=== PATIENT | female | born 1965 | race Native Hawaiian/Other Pacific Islander ===

== ENCOUNTER → 2018-09-04 | Outpatient (CLI) | payer BC ==
--- NOTE | 2018-09-05 13:26 | MM ---
Reason for exam: screening (asymptomatic). Last mammogram was performed 5 years and 3 months ago. History: Cancelled Right US Aspiration of both breasts, August 13, 2005. Benign excisional biopsy of the right breast, July 27, 2002. Benign cyst aspiration of the right breast, 2002. Physical Findings: A clinical breast exam by your physician is recommended on an annual basis and results should be correlated with mammographic findings. MG Screening Mammo w CAD Bilateral CC and MLO view(s) were taken. Prior study comparison: June 08, 2013, bilateral digital screening mammo w/CAD. April 27, 2010, bilateral digital screening mammogram. The breast tissue is extremely dense which could obscure a lesion on mammography. Finding: There are typically benign calcifications in the upper inner quadrant of both breasts. There are indeterminate grouped calcifications in the right breast upper inner quadrant. ASSESSMENT: Incomplete: need additional imaging evaluation, BI-RAD 0 RECOMMENDATION: Special view mammogram of the right breast. [facility] will attempt to contact patient to return for supplemental views.
== END | disposition home or self-care (01) ==
LOC: RADMAMWWP 15:46
PROVIDERS: ATTEND Family Medicine
DX: Z12.31 Encounter for screening mammogram for malignant neoplasm of breast (principal)
CPT/HCPCS: 77067

== ENCOUNTER → 2018-09-08 | Outpatient (CLI) | payer BC ==
--- NOTE | 2018-09-11 09:44 | MM ---
Reason for exam: additional evaluation requested from abnormal screening. Last mammogram was performed less than 1 month ago. History: Cancelled Right US Aspiration of both breasts, August 13, 2005. Benign excisional biopsy of the right breast, July 27, 2002. Benign cyst aspiration of the right breast, 2002. Physical Findings: Nurse did not find any significant physical abnormalities on exam. MG Work Up Mamm w CAD RT LM, CC with magnification, and LM with magnification view(s) were taken of the right breast. Prior study comparison: June 08, 2013, bilateral digital screening mammo w/CAD. Finding: There are intermediate concern, suspicious calcifications in the upper inner quadrant of the right breast. New finding since June 08, 2013. These results were verbally communicated with the patient and result sheet given to the patient on 09/08/18. ASSESSMENT: Suspicious, BI-RAD 4 RECOMMENDATION: Stereotactic core biopsy of the right breast. Called with mammographic findings and has scheduled an appointment for the patient for 09/21/18 at 9:[address] Arnold. PRELIMINARY REPORT CALLED AND FAXED TO DR. ARNOLD ON 09/11/18.
== END | disposition home or self-care (01) ==
LOC: RADMAMWWP 13:30
PROVIDERS: ATTEND Family Medicine
DX: R92.8 Other abnormal and inconclusive findings on diagnostic imaging of breast (principal)
CPT/HCPCS: 77065

== ENCOUNTER 2018-09-15 06:47 | Day surgery (SDC) | payer BC ==
[2018-09-13 15:17] VITALS: BMI 26.1
[~2018-09-15 06:47] MED LIST: LACTATED RINGERS 1,000 ML IV SCH
[2018-09-15 07:04] VITALS: RESP 16; TEMP 97.8
[2018-09-15] MEDS ORDERED: LIDOCAINE 1% 20 ML VIAL (10MG/ML) FOR IV START INTRADERMA ONE (07:11)
[2018-09-15] MEDS ORDERED: SCOPOLAMINE 1.5MG/72HR PATCH TRANSDERM ONE (07:24)
[2018-09-15] MEDS ORDERED: ONDANSETRON 4 MG/2 ML VIAL IVP ONE (07:24)
[2018-09-15] MEDS ORDERED: DEXAMETHASONE SOD PHOS (MDV) 100 MG/10 ML VIAL IVP ONE (07:24)
[2018-09-15] MEDS ORDERED: GLYCOPYRROLATE 0.2 MG/ML 2 ML VIAL ONE (08:22)
[2018-09-15] MEDS ORDERED: PROPOFOL 10 MG/ML 20 ML VIAL IV ONE (08:22)
[2018-09-15] MEDS ORDERED: LIDOCAINE 1% INJ 10MG/ML (20 ML MDV) ONE (08:22)
--- NOTE | 2018-09-15 08:50 | P.PCN ---
Date of Procedure: 09/15/18 Postoperative Diagnosis: BRIEF HISTORY: Patient is a 53-year-old pleasant white female,scheduled for an elective colonoscopy as a part of value should of intermittent rectal bleeding for the last 1 year duration. She also complains of occasional constipation. PROCEDURE PERFORMED: Colonoscopy. PREOPERATIVE DIAGNOSIS: intermittent rectal bleeding IV sedation per Anesthesia. PROCEDURE: After informed consent was obtained, the patient, was brought into the endoscopy unit. IV sedation was administered by Anesthesia under continuous monitoring. Digital rectal examination was normal. Initially the Olympus CF-160 flexible video colonoscope was then inserted in the rectum, gradually advanced into the cecum without any difficulty. Careful examination was performed as the scope was gradually being withdrawn. Ileocecal valve and the appendiceal orifice were visualized and appeared normal. Prep was excellent. Mucosa of the cecum, ascending colon, transverse colon, descending colon, sigmoid colon, and rectum appeared normal. Retroflexion was performed in the rectum and grade 2 internal hemorrhoids ere seen. The patient tolerated the procedure well. IMPRESSION: Normal-appearing colon from rectum to cecum with no evidence of colitis or colorectal neoplasia Grade 2 internal hemorrhoids. RECOMMENDATIONS: Findings of this examination were discussed with the patient as well as her family. She was advised to be a high-fiber diet and fiber supplements on a regular basis. She can have a repeat screening colonoscopy in 10 years.
[2018-09-15 09:09] VITALS: BP 135/78; PULSE 69
== END 2018-09-15 09:33 | disposition home or self-care (01) ==
LOC: ORWHC2ENDO 06:47
PROVIDERS: ATTEND Internal Medicine Gastroenterology
DX: K62.5 Hemorrhage of anus and rectum (principal); K59.00 Constipation, unspecified; K64.1 Second degree hemorrhoids; Z79.899 Other long term (current) drug therapy; Z88.5 Allergy status to narcotic agent; Z91.041 Radiographic dye allergy status; Z88.0 Allergy status to penicillin; Z91.048 Other nonmedicinal substance allergy status; I10 Essential (primary) hypertension
CPT/HCPCS: 45378; J2405; J2001; J1100; J2704

== ENCOUNTER → 2018-11-02 | Day surgery (SDC) | payer BC ==
[2018-11-02 07:26] VITALS: RESP 16; TEMP 98.5; BMI 26.6
[2018-11-02 09:33] VITALS: BP 146/78; PULSE 80
--- NOTE | 2018-11-02 10:54 | P.OP ---
Date of Procedure: 11/02/18 Preoperative Diagnosis: Mammographic abnormality right breast Postoperative Diagnosis: same Procedure(s) Performed: Right breast stereotactic core biopsy Anesthesia: local Surgeon: Priti Whelan Estimated Blood Loss (ml): 0 Pathology: other (breast tissue) Condition: stable Disposition: same day Indications for Procedure: Mammographic abnormality right breast Operative Findings: Microcalcifications noted in tissue specimen Description of Procedure: The patient is a 53-year-old white female with a radiographic abnormality of microcalcifications noted in the upper outer quadrant area of the right breast. It was recommended she undergo stereotactic core biopsy. The patient understands risks and benefits and wishes to proceed. Patient was taken to the stereotactic core room and positioned on the liver bed table. A finger buffs assembler film was obtained which revealed the area of calcification. Stereo pair was obtained and the area was targeted. The breast was prepped using Betadine. 20 mL of 1% lidocaine utilized to anesthetize the tissue. 10 mL of that was with epinephrine. Bleeding 9-gauge vacuum-assisted core rotating biopsy needle was driven to the correct coordinates. The procedure films were obtained which revealed an needle was in the correct location. The needle was then fired and postprocedure films were obtained again revealing the needle to be in the correct location. Multiple core biopsies were then obtained. Approximately 13 were obtained. Radiograph of the specimen revealed the area of concern had been removed. A secure marked top at marker was left in place. This was noted to be in the correct location. Specimen was sent for pathology. Patient will follow-up with Dr. Washburn next week.
--- NOTE | 2018-11-02 17:03 | MM ---
EXAMINATION TYPE: MG stereo VAD BX RT DATE OF EXAM: 11/02/2018 COMPARISON: 09/04/2018, 09/08/2018 mammograms CLINICAL HISTORY: Previous abnormal mammogram TECHNIQUE: Stereotactic guided core biopsy of right breast. FINDINGS: The procedure of stereotactic guided core biopsy was explained to the patient. Benefits, a lternatives, and risks were discussed. An informed consent was then obtained. The procedure and targeting was provided by surgery. Postprocedure mammogram was obtained and demonstrates the clip at the expected region of the biopsy s ite. Sample: Mammographic sample obtained demonstrates calcifications within the biopsy. IMPRESSION: 1. Successful stereotactic core biopsy right breast Recommendations: 1. Recommendations are pending pathology results.
== END ==
LOC: RADMAMWWP 07:00
PROVIDERS: ATTEND Surgery
DX: C50.211 Malignant neoplasm of upper-inner quadrant of right female breast (principal)
CPT/HCPCS: 19081; A4648; J2001; 88305; 88341; 88342

== ENCOUNTER → 2018-11-09 | Outpatient (CLI) | payer BC ==
[2018-11-09 08:58] VITALS: BP 153/89; PULSE 64; RESP 16; TEMP 98.4; BMI 26.5
--- NOTE | 2018-11-09 09:34 | P.GSHP ---
History of Present Illness H&P Date: 11/09/18 Chief Complaint: right breast cancer The patient is a 53-year-old Somali female who noted some nodularity in her right breast for several years. She has had a benign excisional biopsy of the right breast in July 2002. She's also had cyst aspirated from this breast in the past. The patient recently had a mammogram performed on 4118. This revealed an indeterminate group of calcifications in the right breast in the upper inner quadrant. A stereotactic core biopsy was recommended. The stereotactic core biopsy was positive for infiltrating ductal adenocarcinoma, grade 1 with a lobular growth pattern. It was felt that was multifocal with the largest biopsy tumor measuring 2.2 mm. The background breast parenchyma showed extensive ductal carcinoma in situ with focal comedo form necrosis. The lesion was ER/SD positive as well as HER-2/ajit positive. The patient does not note any areas of concern in the left breast. She has no nipple discharge or skin changes of concern. She has no history of any trauma or infection in the breast. Family history: 1. father: pancreas cancer 2. mother: lung cancer nonsmoker Hormonal history: Menarche:10 , first at 29, breast fed: no menopause: hysterectomy at 41 did not take ovaries, not for cancer BCP: none hormones: none Surgical history: 1. Hysterectomy 2. Tonsillectomy 3. Cholecystectomy 4. Breast cyst in the right Medical history: HTN Social history: Smoke: Negative Alcohol: Negative Drugs: Negative - Constitutional Constitutional: Denies chills, Denies fever - EENT Eyes: bilateral blurred vision Ears: deny: decreased hearing, tinnitus Ears, nose, mouth and throat: Reports headache - Breasts Breasts: bilateral: as per HPI - Cardiovascular Comment: Stress test scheduled for next week by cardiology Cardiovascular: Reports high blood pressure - Respiratory Respiratory: Denies cough, Denies 7 - Gastrointestinal Gastrointestinal: Denies abdominal pain, Denies diarrhea, Denies nausea, Denies vomiting - Genitourinary (Female) Genitourinary: Denies dysuria, Denies hematuria - Menstruation Menstruation: Reports post hysterectomy - Musculoskeletal Comment: arthritis Musculoskeletal: Denies myalgias - Integumentary Integumentary: Denies pruritus, Denies rash - Neurological Neurological: Denies numbness, Denies weakness - Psychiatric Psychiatric: Denies anxiety, Denies depression - Endocrine Endocrine: Denies fatigue, Denies weight change - Hematologic/Lymphatic Comment: none - Allergic/Immunologic Allergic/Immunologic: Reports as per HPI, Reports seasonal allergies Past Medical History Additional Past Surgical History / Comment(s): right breast benign excisional biopsy x2 Past Anesthesia/Blood Transfusion Reactions: Postoperative Nausea & Vomiting (PONV) Medications and Allergies Home Medications Medication Instructions Recorded Confirmed Type Losartan Potassium 100 mg PO HS 09/13/18 11/02/18 History Multivitamins, Thera [Multivitamin 1 tab PO DAILY 09/13/18 11/02/18 History (formulary)] amLODIPine [Norvasc] 5 mg PO HS 09/13/18 11/02/18 History Biotin 5 mg PO DAILY 10/23/18 11/02/18 History Cholecalciferol (Vitamin D3) 2,000 unit PO DAILY 10/23/18 11/02/18 History [Vitamin D3] Cranberry Fruit Extract [Cranberry] 200 mg PO DAILY 10/23/18 11/02/18 History Allergies Allergy/AdvReac Type Severity Reaction Status Date / Time Iodinated Contrast- Oral and Allergy Anaphylaxis Verified 11/02/18 07:19 IV Dye Penicillins Allergy Rash/Hives Verified 11/02/18 07:19 codeine AdvReac Nausea & Verified 11/02/18 07:19 Vomiting Surgical - Exam BMI 26.5 - General well developed, well nourished, no distress - Eyes normal ocular movement - ENT normal pinna, no hearing loss - Neck no masses, trachea midline - Respiratory normal expansion, normal respiratory effort, clear to auscultation - Cardiovascular Rhythm: regular Heart Sounds: normal: S1, S2 - Abdomen Abdomen: soft, non tender, no guarding, no rigid, no rebound - Integumentary normal turgor - Neurologic no disoriented, no combative - Musculoskeletal normal gait, normal posture - Psychiatric oriented to time, oriented to person, oriented to place, speech is normal, memory intact Breast examination: Right breast: Well-healed scar lateral aspect of the breast from prior biopsy, increased density of the tissue at this site, ecchymosis mild at the site of stereo biopsy no hematoma of concern, and no other dominant masses or nodules of concern Right axilla: No adenopathy of concern {: Multiple positional exam no dominant masses or nodules of concern Left axilla: No adenopathy of concern Results Pathology results reviewed Assessment and Plan Assessment: Impression: 1. Biopsy-proven right breast cancer 2. Abnormal mammogram right breast 3. Dense this in the lateral aspect of the right breast 4. Fibrocystic breast changes 5. Family history of cancer 6. Hypertension I had a discussion with the patient regarding her pathology. She is quite anxious and is contacting her at this time. I discussed the case also with Dr. Pace from medical oncology, his feeling is that if the lesion is less than 2 cm she is not a candidate at this time for preoperative chemotherapy. Plan: 1. The patient is wishes to discuss the case with her she is going to bring him back to have this discussion 2. Options of lumpectomy versus mastectomy were discussed with the patient. 3. Medical management of medical conditions CC: Dr. Arnold
== END ==
LOC: WWCWWP 08:44
PROVIDERS: ATTEND Surgery
DX: Z53.9 Procedure and treatment not carried out, unspecified reason (principal)

== ENCOUNTER 2018-11-14 10:23 | Inpatient (IN) | payer BC ==
[2018-11-13 08:45] VITALS: BMI 26.5
--- NOTE | 2018-11-14 06:59 | P.PN ---
Progress Note - Text Progress Note Date: 11/14/18 The patient has met with radiation oncology. After discussion with her in radiation oncology she has opted for a lumpectomy. The patient will undergo needle localization and lumpectomy. She was sentinel node injection sentinel node biopsy possible axillary node dissection. She understands the risks and benefits and wishes to proceed.
[~2018-11-14 10:23] MED LIST changes: +DEXAMETHASONE SOD PHOSPHATE 10 MG/ML 1 ML VIAL IV ONE; +HEPARIN SODIUM,PORCINE 5,000 UNIT/ML 1 ML VIAL SQ ONE; +MIDAZOLAM 2 MG/2 ML VIAL IV PRN; +ONDANSETRON 4 MG/2 ML VIAL IVP ONE; +Pre Op ABX Message 1 EACH MISC MISCELLANE ONE; +SCOPOLAMINE 1.5MG/72HR PATCH TRANSDERM ONE; +fentaNYL (PF) 50 MCG/ML 2 ML AMP IV PRN
[2018-11-14] MEDS ORDERED: LIDOCAINE 1% 20 ML VIAL (10MG/ML) FOR IV START INTRADERMA ONE (11:15)
[2018-11-14] MEDS ORDERED: ALPRAZolam 0.5 MG TAB PO ONE ×2 (11:16)
[2018-11-14] MEDS ORDERED: LIDOCAINE 1% INJ 10MG/ML (20 ML MDV) SQ ONE ×4 (11:49→17:22)
--- NOTE | 2018-11-14 12:51 | NM ---
EXAMINATION TYPE: NM sentinel node injection DATE OF EXAM: 11/14/2018 COMPARISON: 11/02/2018 HISTORY: Right breast cancer with request for sentinel lymph node injection TECHNIQUE AND FINDINGS: The procedure of sentinel lymph node injection was explained to the patient. The benefits, alternatives, and risks were discussed. An informed consent was then obtained. Overlying skin is cleaned with sterile alcohol. Following this, 501 uCi Tc99m Tilmanocept was inject ed in the upper outer aspect of the right nipple intradermally. The patient tolerated the procedure well without any immediate complication. The patient was kept in the radiology department for short stay after the procedure and then taken to surgery for surgical p rocedure what is presumed intraoperative gamma probe will be used for sentinel lymph node detection. IMPRESSION: Right breast radiotracer injection for sentinel node localization as above.
[2018-11-14] MEDS ORDERED: LIDOCAINE 1% INJ 10MG/ML (20 ML MDV) ONE (14:45)
[2018-11-14] MEDS ORDERED: PROPOFOL 10 MG/ML 20 ML VIAL IV ONE (14:45)
[2018-11-14] MEDS ORDERED: fentaNYL (PF) 50 MCG/ML 2 ML AMP ONE (14:45)
[2018-11-14] MEDS ORDERED: MIDAZOLAM 2 MG/2 ML VIAL ONE (14:45)
[2018-11-14] MEDS ORDERED: KETOROLAC 30 MG/ML 1 ML VIAL ONE (14:45)
[2018-11-14] MEDS ORDERED: SUCCINYLCHOLINE CHLORIDE 100 MG/5 ML SYR IV ONE (14:45)
[2018-11-14] MEDS ORDERED: HEPARIN SODIUM,PORCINE 5,000 UNIT/ML 1 ML VIAL SQ ONE (15:05)
[2018-11-14] MEDS ORDERED: LACTATED RINGERS 1,000 ML IV ONE (16:03)
--- NOTE | 2018-11-14 16:28 | MM ---
EXAMINATION TYPE: MG pre op needle loc RT, MG surgical specimen RT DATE OF EXAM: 11/14/2018 COMPARISON: 11/02/2018 CLINICAL HISTORY: Right breast needle localization for DCIS TECHNIQUE: Needle localization with wire placement and surgical excision of area of concern in the right breast. FINDINGS: The procedure of needle localization with wire placement and than surgical excision was explained to the patient. Benefits, alternatives, and risks were discussed. An informed consent was then obtained. Preprocedural timeout was performed. The shortest pathway for procedure was chosen. Shortest pathway was medial to lateral approach. The overlying skin was prepped and draped in usual sterile fashion. Lidocaine buffered with bicarbonate was used as anesthetic into the skin and subcutaneous tissue up to the level of area of concern. A 7 cm needle was used. It was placed via a medial collateral approach under mammographic guidance. Subsequent 90 degrees mammogram show the needle to be in satisfactory position relative to the targeted area. At this point, wire was placed and the needle was withdrawn. The wire was fixed to patient's skin. Images were marked for surgeon. The patient tolerated the procedure well without any immediate complication. The patient was kept in the radiology department for short stay after the procedure and then taken to surgery for surgical excision. Targeted biopsy marker and wire are identified in specimen mammogram. These are most cranial aspect of the edge of the sample. This was communicated with the surgeon however no additional superior tissue was left to resect. The patient was kept in hospital for short stay after the procedure and then discharged home in stable condition. IMPRESSION: Successful, uncomplicated needle localization with wire placement and surgical excision of the targeted biopsy marker, and wire in the right breast, full pathology results to follow. Communicated with Dr. Whelan at 1625 on 11/14/18. Pathology Results: Malignant A. SENTINEL LYMPH NODE BIOPSY: One lymph node partially replaced by fat, negative for metastatic adenocarcinoma as seen on H+E as well as appropriately controlled immunohistochemistry studies for cytokeratin 7 and MEREDITH. B. RIGHT BREAST WITH MARGINS, LUMPECTOMY: Well differentiated (Grade 1) infiltrating duct carcinoma with a lobular growth pattern measuring 12.4 x 6.0 x 5.0 mm in greatest dimension extending to within 5.5 mm of the blue inked anterior margin of resection. Surrounding breast parenchyma shows duct carcinoma in situ with comedo form necrosis and microscopic ALH/LCIS. See Surgical Pathology Cancer Case Summary. C. AXILLARY LYMPH NODE, EXCISION: One lymph node - negative for metastatic adenocarcinoma. D. SKIN, EXCISION: Benign skin and dermis. Recommendation Surgical consult of the right breast. (continued surgical management) ASIA
--- NOTE | 2018-11-14 17:37 | P.OP ---
Date of Procedure: 11/14/18 Preoperative Diagnosis: Right breast cancer Postoperative Diagnosis: same Procedure(s) Performed: Right breast lumpectomy. Via donut mastopexy incision, oncoplastic tissue rearrangement approximately 30 cc, sentinel node biopsy Anesthesia: SANDYA Surgeon: Priti Whelan Estimated Blood Loss (ml): 15 IV fluids (ml): 750 Pathology: other (Right breast tissue, sentinel lymph node) Condition: stable Disposition: same day Indications for Procedure: core Biopsy diagnosis right breast cancer Operative Findings: Dense breast tissue Description of Procedure: The patient is a 53-year-old female who was diagnosed with a right breast cancer via core biopsy. After consultation patient wished for breast preserving surgery. Preoperative discussion of incision time was entertained with the patient and her and the decision was to approach the lesion via a donut mastopexy. The patient was taken to the operating room following injection of lymphatic line in the periareolar region on the right, and localization of the area of concern. The axilla was approached first. The neoprobe. Greatest radioactivity was identified. An incision was made and dissection was carried to the pectoralis major muscle. Dissection was preformed inferior to the muscle and the axillary contents were evaluated. Interrogation via the neoprobe was preformed and an isolated radioactive lymph node was identified. This was removed and sent to pathology. Pathology section noted there was a gastric placed another. After discussion we opted not to do frozen section evaluation. The deep tissues were closed using a Vicryl suture. This was done after we were assured that hemostasis was attained and the wound had been irrigated. The skin was closed using a 4-0 Monocryl. Steri-Strips were applied. The breast was then approached. Circumareolar incision was made followed by a concentric incision approximately 1 cm from the periareolar incision. The tissue was de-epithelialized. The breast parenchyma was then entered in an incision near the superior circumareolar incision. Dissection was performed in the plane between the breast and subcutaneous tissue. This was carried to the shaft of the needle. This tissue was grasped and surrounding tissue was excised. Excision was performed to the pectoralis major muscle. After we were assured that hemostasis was attained the wound was well irrigated. The specimen was painted for orientation. Powerized surgicel was placed in the wound. X-ray of the specimen revealed that the area of concern had been removed. The tissue was then mobilized in the plane between the breast tissure and the pectoralis muscle as well as in the plane between the subcutaneous tissue and breast. This allowed us to be able to be closed our defect using a 3-0 Vicryl suture. The tissue mobilized was approximately 30 cc. Prior to closure the space was marked with titanium clips. The circumareolar incision was closed using a pursestring suture of 5-0 Winfield-Todd. This was followed by 4-0 Monocryl. Skin was further reapproximated with 5-0 nylon. All instrument and sponge counts were correct at the end of the case. Patient tolerated the procedure in stable condition.
--- NOTE | 2018-11-14 17:38 | P.DS ---
Providers Date of admission: 11/14/18 10:23 Attending physician: Priti Whelan Primary care physician: Alfred Arnold Plan - Discharge Summary Discharge Rx Participant: No New Discharge Prescriptions: No Action amLODIPine [Norvasc] 5 mg PO HS Multivitamins, Thera [Multivitamin (formulary)] 1 tab PO DAILY Losartan Potassium 100 mg PO HS Cranberry Fruit Extract [Cranberry] 200 mg PO DAILY Biotin 5 mg PO DAILY Cholecalciferol (Vitamin D3) [Vitamin D3] 2,000 unit PO DAILY Discharge Medication List Losartan Potassium 100 mg PO HS 09/13/18 [History] Multivitamins, Thera [Multivitamin (formulary)] 1 tab PO DAILY 09/13/18 [History] amLODIPine [Norvasc] 5 mg PO HS 09/13/18 [History] Biotin 5 mg PO DAILY 10/23/18 [History] Cholecalciferol (Vitamin D3) [Vitamin D3] 2,000 unit PO DAILY 10/23/18 [History] Cranberry Fruit Extract [Cranberry] 200 mg PO DAILY 10/23/18 [History] Follow up Appointment(s)/Referral(s): Priti Whelan MD [STAFF PHYSICIAN] - 1 Week Activity/Diet/Wound Care/Special Instructions: do not drive until seen by Dr. Washburn may shower after 48 hours wear bra at all times Discharge Disposition: HOME SELF-CARE
[2018-11-14 17:41] VITALS: TEMP 98.3
[2018-11-14] MEDS ORDERED: HYDROmorphone 1 MG/ML 1 ML SYRINGE IVP ONE (17:45)
[2018-11-14] MEDS ORDERED: ONDANSETRON 4 MG/2 ML VIAL IVP ONE (17:47)
[2018-11-14 18:13] VITALS: RESP 16
[2018-11-14 18:48] VITALS: BP 150/84; PULSE 61
== END 2018-11-14 19:22 | disposition home or self-care (01) | DRG 581 ==
LOC: 2ORMAIN 10:23
PROVIDERS: ADMIT Surgery; ATTEND Surgery
PROC: 0HST0ZZ Reposition Right Breast, Open Approach (ICD-10-PCS; 2018-11-14)
PROC: 07B50ZX Excision of Right Axillary Lymphatic, Open Approach, Diagnostic (ICD-10-PCS; 2018-11-14)
PROC: 0HBT0ZX Excision of Right Breast, Open Approach, Diagnostic (ICD-10-PCS; 2018-11-14)
PROC: 0HBT0ZZ Excision of Right Breast, Open Approach (ICD-10-PCS; principal; 2018-11-14 15:30)
DX: C50.211 Malignant neoplasm of upper-inner quadrant of right female breast (principal); I10 Essential (primary) hypertension; Z17.0 Estrogen receptor positive status [ER+]; N60.19 Diffuse cystic mastopathy of unspecified breast; K21.9 Gastro-esophageal reflux disease without esophagitis; Z90.710 Acquired absence of both cervix and uterus; Z98.890 Other specified postprocedural states; Z90.49 Acquired absence of other specified parts of digestive tract; Z80.0 Family history of malignant neoplasm of digestive organs; Z80.1 Family history of malignant neoplasm of trachea, bronchus and lung
CPT/HCPCS: 38792; 76098; 88305; 88307; 88341; 88342

== ENCOUNTER → 2018-11-24 | Outpatient (CLI) | payer BC ==
[2018-11-24 12:12] VITALS: BP 151/83; PULSE 76; RESP 18; TEMP 98.2; BMI 26.5
--- NOTE | 2018-11-24 12:50 | P.PN ---
Subjective Progress Note Date: 11/24/18 Lacy is postop right breast lumpectomy and sentinel node biopsy. Pathology revealed margins were negative for any tumor. The sentinel lymph nodes did not show any tumor. The patient has no complaints postoperatively. Physical examination: Incision clean and dry in the axilla as well as in the periareolar region The areola is larger on the right than on the left Mild ecchymosis no evidence of any infection Lungs: Clear Heart: Regular rate and rhythm Impression/plan: 1. Patient doing well status post right breast lumpectomy and sentinel node biopsy 2. Follow-up with medical oncology 3. Follow-up with radiation oncology 4. Follow-up care in 1 week to re-evaluate the incision, nylon skin periareolar sutures removed today CC: Dr. Arnold Objective - Vital Signs Vital signs: Vital Signs Temp 98.2 F 11/24/18 12:01 Pulse 76 11/24/18 12:01 Resp 18 11/24/18 12:01 BP 151/83 11/24/18 12:01 Pulse Ox 98 11/24/18 12:01 Intake & Output 11/23/18 11/24/18 11/24/18 18:59 06:59 18:59 Weight 65.771 kg
== END | disposition home or self-care (01) ==
LOC: WWCWWP 11:41
PROVIDERS: ATTEND Surgery
DX: Z53.9 Procedure and treatment not carried out, unspecified reason (principal)

== ENCOUNTER → 2018-12-13 | Outpatient (CLI) | payer BC ==
--- NOTE | 2018-12-14 10:20 | ECHOF ---
Referral Reason:C50.211 Breast Ca, Z01.818 Pre chemo MEASUREMENTS -------- HEIGHT: 154.9 cm WEIGHT: 65.8 kg BP: 128/78 RVIDd: 2.9 cm (< 3.3) IVSd: 1.2 cm (0.6 - 1.1) LVIDd: 4.0 cm (3.9 - 5.3) LVPWd: 1.4 cm (0.6 - 1.1) IVSs: 1.4 cm LVIDs: 2.6 cm LVPWs: 1.5 cm LAESV Index (A-L): 20.57 ml/m Ao Diam: 2.7 cm (2.0 - 3.7) AV Cusp: 1.5 cm (1.5 - 2.6) LA Diam: 2.7 cm (2.7 - 3.8) MV EXCURSION: 14.317 mm (> 18.000) MV EF SLOPE: 87 mm/s (70 - 150) EPSS: 1.6 cm MV E Ronny: 0.60 m/s MV DecT: 243 ms MV A Ronny: 0.85 m/s MV E/A Ratio: 0.70 RAP: 5.00 mmHg RVSP: 32.43 mmHg FINDINGS -------- Sinus rhythm. This was a technically good study. The left ventricular size is normal. There is mild concentric left ventricular hypertrophy. Overa ll left ventricular systolic function is normal with, an EF between 60 - 65 %. The diastolic fillin g pattern is normal for the age of the patient 10.50. The right ventricle is normal in size. Normal LA size by volume 22+/-6 ml/m2. The right atrial size is normal. Interatrial and interventricular septum intact. The aortic valve is trileaflet and appears structurally normal. There is no evidence of aortic regu rgitation. There is no evidence of aortic stenosis. No mitral regurgitation. Mild tricuspid regurgitation present. There is no evidence of pulmonary hypertension. The right v entricular systolic pressure, as measured by Doppler, is 32.43mmHg. There is no pulmonic regurgitation present. The aortic root size is normal. Normal inferior vena cava with normal inspiratory collapse consistent with estimated right atrial pre ssure of 5 mmHg. There is no pericardial effusion. CONCLUSIONS -------- 1. Sinus rhythm. 2. This was a technically good study. 3. The left ventricular size is normal. 4. There is mild concentric left ventricular hypertrophy. 5. Overall left ventricular systolic function is normal with, an EF between 60 - 65 %. 6. The diastolic filling pattern is normal for the age of the patient 10.50 7. The right ventricle is normal in size. 8. Normal LA size by volume 22+/-6 ml/m2. 9. The right atrial size is normal. 10. Interatrial and interventricular septum intact. 11. The aortic valve is trileaflet and appears structurally normal. 12. There is no evidence of aortic regurgitation. 13. There is no evidence of aortic stenosis. 14. No mitral regurgitation. 15. Mild tricuspid regurgitation present. 16. There is no evidence of pulmonary hypertension. 17. The right ventricular systolic pressure, as measured by Doppler, is 32.43mmHg. 18. There is no pulmonic regurgitation present. 19. The aortic root size is normal. 20. Normal inferior vena cava with normal inspiratory collapse consistent with estimated right atrial pressure of 5 mmHg. 21. There is no pericardial effusion. RIVER PILOT: Kelin Franco, [facility]
== END | disposition home or self-care (01) ==
LOC: RADECHMAIN 15:37
PROVIDERS: ATTEND Internal Medicine Hematology & Oncology
DX: Z01.818 Encounter for other preprocedural examination (principal); I07.1 Rheumatic tricuspid insufficiency; C50.211 Malignant neoplasm of upper-inner quadrant of right female breast; Z88.0 Allergy status to penicillin; Z88.5 Allergy status to narcotic agent
CPT/HCPCS: 93306

== ENCOUNTER → 2018-12-14 | Outpatient (CLI) | payer BC ==
[2018-12-14 11:41] VITALS: BP 147/88; PULSE 69; RESP 18; TEMP 98.6; BMI 27.3
--- NOTE | 2018-12-14 11:49 | P.PN ---
Progress Note - Text Progress Note Date: 12/14/18 The patient is a 53-year-old female status post right breast lumpectomy and sentinel node biopsy performed on 6618. This was a stage IA tumor. She was seen by medical oncology and recommended to undergo chemotherapy. She will also undergo radiation therapy. She is planning to have a Port-A-Cath placed tomorrow. Physical exam Lungs: Clear Heart: Regular rate and rhythm Incisions: Clean and dry no evidence of any infection Impression/Plan 1. Patient status post right breast lumpectomy and sentinel node biopsy is healing well 2. Patient recommended by medical oncology to undergo chemotherapy 3. Patient will undergo radiation therapy 4. Follow-up in 3 months time Cc: Dr. Arnold
== END | disposition home or self-care (01) ==
LOC: WWCWWP 10:16
PROVIDERS: ATTEND Surgery
DX: Z53.9 Procedure and treatment not carried out, unspecified reason (principal)

== ENCOUNTER → 2018-12-15 | Day surgery (SDC) | payer BC ==
[2018-12-14 08:52] VITALS: BMI 27.3
[~2018-12-15] MED LIST changes: +ACETAMINOPHEN TAB 325 MG TAB PO ONE; +ESMOLOL 100 MG/10 ML VIAL ONE; +HEPARIN SODIUM,PORCINE 100 UNIT/ML 5 ML VIAL IV ONE; -HEPARIN SODIUM,PORCINE 5,000 UNIT/ML 1 ML VIAL SQ ONE; +HYDROmorphone 0.5 MG/0.5 ML SYRINGE IVP PRN; +KETAMINE 10 MG/ML 20 ML VIAL ONE; +LACTATED RINGERS 1,000 ML IV ONE; +LIDOCAINE (PF) 10 MG/ML 2 ML VIAL SQ ONE; +LIDOCAINE 1% 20 ML VIAL (10MG/ML) FOR IV START IV ONE; +LIDOCAINE 1% INJ 10MG/ML (20 ML MDV) ONE; +MIDAZOLAM 2 MG/2 ML VIAL ONE; +NALOXONE 0.4 MG/ML 1 ML VIAL IV PRN; +PROPOFOL 10 MG/ML 20 ML VIAL IV ONE; +SODIUM CHLORIDE 0.9% 100 ML with ceFAZolin 2,000 MG IV ONE; +ceFAZolin IN SWFI 2 GM/20 ML SYRINGE IVP STA; -fentaNYL (PF) 50 MCG/ML 2 ML AMP IV PRN
--- NOTE | 2018-12-15 07:37 | P.GSHP ---
History of Present Illness H&P Date: 12/15/18 Chief Complaint: Right breast cancer 53-year-old female underwent recent lumpectomy for right-sided breast cancer. Found to be triple positive. Here today for Port-A-Cath placement. Chemotherapy to begin in the next week or so. She has not had a port previously. Past Medical History Past Medical History: Cancer, Hypertension, Osteoarthritis (OA), Pneumonia Additional Past Medical History / Comment(s): right breast cancer 11/2018; Hx Pneumonia 2015; Ocassional blurred vision; constipation; History of Any Multi-Drug Resistant Organisms: None Reported Past Surgical History: Breast Surgery, Cholecystectomy, Hysterectomy, Tonsillectomy Additional Past Surgical History / Comment(s): Benign right breast excisional biopsy 07/27/2002; benign right breast cyst aspiration 2002; Colonoscopy; RT BREAST LUMPECTOMY 11/14/2018; Past Anesthesia/Blood Transfusion Reactions: Motion Sickness, Postoperative Nausea & Vomiting (PONV) Past Psychological History: Anxiety Smoking Status: Never smoker Past Alcohol Use History: None Reported Past Drug Use History: None Reported - Past Family History Father Family Medical History: Cancer Mother Family Medical History: Cancer Medications and Allergies Home Medications Medication Instructions Recorded Confirmed Type Multivitamins, Thera [Multivitamin 1 tab PO HS 09/13/18 12/14/18 History (formulary)] amLODIPine [Norvasc] 5 mg PO HS 09/13/18 12/14/18 History Biotin 5 mg PO HS 10/23/18 12/14/18 History Cholecalciferol (Vitamin D3) 2,000 unit PO HS 10/23/18 12/14/18 History [Vitamin D3] Cranberry Fruit Extract [Cranberry] 200 mg PO HS 10/23/18 12/14/18 History Losartan/Hydrochlorothiazide 1 each PO HS 12/14/18 12/14/18 History [Losartan-Hctz 100-25 mg Tab] Allergies Allergy/AdvReac Type Severity Reaction Status Date / Time Iodinated Contrast- Oral and Allergy Anaphylaxis Verified 12/15/18 07:15 IV Dye Penicillins Allergy Rash/Hives Verified 12/15/18 07:15 codeine AdvReac Nausea & Verified 12/15/18 07:15 Vomiting Surgical - Exam Vital Signs Temp Pulse Resp BP Pulse Ox 98.6 F 83 16 136/82 100 12/15/18 07:25 12/15/18 07:25 12/15/18 07:25 12/15/18 07:25 12/15/18 07:25 Physical exam: General: Well-developed, well-nourished HEENT: Normocephalic, sclerae nonicteric Abdomen: Nontender, nondistended Extremities: No edema Neuro: Alert and oriented Assessment and Plan (1) Breast cancer, right Narrative/Plan: Will proceed with Port-A-Cath placement at this time. Risks of bleeding, infection, DVT, pneumothorax, catheter malfunction, anesthesia related complications were discussed. The patient understands and wishes to proceed. Current Visit: Yes Status: Acute Code(s): C50.911 - MALIGNANT NEOPLASM OF UNSP SITE OF RIGHT FEMALE BREAST SNOMED Code(s): 110895293
--- NOTE | 2018-12-15 09:24 | P.OP ---
Date of Procedure: 12/15/18 Procedure(s) Performed: PREOPERATIVE DIAGNOSIS: Right breast cancer POSTOPERATIVE DIAGNOSIS: Same PROCEDURE: Port-A-Cath placement SURGEON: Oscar EBL: Minimal ANESTHESIA: Sedation COMPLICATIONS: None OPERATIVE PROCEDURE: Patient was brought and placed on the operative table in the supine position. The patient was sedated per anesthesia that time. The chest and neck were prepped and draped in usual sterile fashion. The ultrasound probe was used to identify the location of the right internal jugular vein. The skin was localized with lidocaine. The Seldinger needle was advanced into the IJ under ultrasound guidance. The wire was advanced through the needle under fluoroscopic guidance into the superior vena cava. A port pocket was created in the right infraclavicular location. The catheter was tunneled from the wire entrance site to the port pocket. The port was then connected to the catheter. The dilator introducer was threaded over the guidewire. The guidewire and dilator were then removed. The catheter was advanced through the introducer and introducer was then removed. The tip was seen to be in the right atrial junction. Port was flushed with both saline and a Hep-Lock solution. There was good flow both in and out of the port. The port was sutured in underlying tissues using 3-0 silk sutures. The subcutaneous tissues were reapproximated using 3-0 Vicryl sutures and the skin at both locations using 4-0 Monocryl sutures. Skin glue and sterile dressings then applied. DISPOSITION: Stable to recovery room
--- NOTE | 2018-12-15 09:33 | FL ---
Fluoroscopy INDICATION: Pain FINDINGS: Fluoroscopy time: 1 seconds. Images obtained: 1. IMPRESSIONS: 1. Documentation of fluoroscopy.
[2018-12-15 09:39] VITALS: TEMP 96.9
[2018-12-15 09:50] VITALS: RESP 16
[2018-12-15 10:20] VITALS: BP 121/65; PULSE 72
--- NOTE | 2018-12-15 11:10 | XR ---
EXAMINATION TYPE: XR chest 1V confirm line [facility] DATE OF EXAM: 12/15/2018 COMPARISON: None HISTORY: Port-A-Cath placement TECHNIQUE: Single frontal view of the chest is obtained. FINDINGS: There is a Mediport catheter with tip overlying the right atrium. No sizable pneumothorax. Heart is prominent there subsegmental consolidation involving both lungs. Surgical clips overlying t he right breast. Surgical clips in the right upper quadrant of the abdomen. IMPRESSION: 1. Mediport is seen with the tip overlying the right atrium and no evidence of pneumothorax. 2. Subsegmental bilateral consolidation correlate for atelectasis versus infiltrate.
== END ==
LOC: OR 07:00
PROVIDERS: ATTEND Surgery
DX: C50.911 Malignant neoplasm of unspecified site of right female breast (principal); I10 Essential (primary) hypertension; M19.90 Unspecified osteoarthritis, unspecified site; Z87.01 Personal history of pneumonia (recurrent); Z90.49 Acquired absence of other specified parts of digestive tract; Z90.710 Acquired absence of both cervix and uterus; F41.9 Anxiety disorder, unspecified; Z79.899 Other long term (current) drug therapy; Z88.5 Allergy status to narcotic agent; Z88.0 Allergy status to penicillin; Z91.041 Radiographic dye allergy status
CPT/HCPCS: 77001; 36561; C1788; J2250; J2001 ×2; J1642; J1100; J2405; J0690; J2704

== ENCOUNTER → 2019-02-14 | Outpatient (CLI) | payer BC ==
--- NOTE | 2019-02-14 10:17 | USB ---
Reason for exam: clinical finding. History: Patient has history of breast cancer at age 53. Malignant MG pre op needle loc RT of the right breast, November 14, 2018. Lumpectomy of the right breast, November 14, 2018. Malignant MG stereo VAD BX RT of the right breast, November 02, 2018. Cancelled Right US Aspiration of both breasts, August 13, 2005. Benign excisional biopsy of the right breast, July 27, 2002. Benign cyst aspiration of the right breast, 2002. Physical Findings: Nurse Summary: right breast tender at incision (nurse cw). US Breast RT Right complete breast ultrasound includes all four quadrants, the retroareolar region and axilla. Finding demonstrates a probable seroma 11-1 o'clock zone Z with interval, mobile debris. No interval of increased peripheral vascular flow. These results were verbally communicated with the patient and result sheet given to the patient on 02/14/19. ASSESSMENT: Benign, BI-RAD 2 RECOMMENDATION: Follow-up diagnostic mammogram of both breasts in 7 months. Back on schedule for September 2019.
== END | disposition home or self-care (01) ==
LOC: RADUSWWP 08:23
PROVIDERS: ATTEND Internal Medicine Hematology & Oncology
DX: N64.4 Mastodynia (principal); Z85.3 Personal history of malignant neoplasm of breast

== ENCOUNTER → 2019-03-20 | Outpatient (CLI) | payer BC ==
--- NOTE | 2019-03-20 12:01 | ECHOF ---
Referral Reason:C50.211 Breast ca, Z01.818 Chemo MEASUREMENTS -------- HEIGHT: 157.5 cm WEIGHT: 68.0 kg BP: RVIDd: 3.3 cm (< 3.3) IVSd: 1.0 cm (0.6 - 1.1) LVIDd: 4.7 cm (3.9 - 5.3) LVPWd: 1.1 cm (0.6 - 1.1) IVSs: 1.0 cm LVIDs: 3.7 cm LVPWs: 1.2 cm LA Diam: 4.5 cm (2.7 - 3.8) LAESV Index (A-L): 41.80 ml/m Ao Diam: 2.4 cm (2.0 - 3.7) AV Cusp: 1.5 cm (1.5 - 2.6) LA Diam: 3.7 cm (2.7 - 3.8) MV EXCURSION: 17.245 mm (> 18.000) MV EF SLOPE: 106 mm/s (70 - 150) EPSS: 0.7 cm MV E Ronny: 0.93 m/s MV DecT: 162 ms MV A Ronny: 0.64 m/s MV E/A Ratio: 1.45 RAP: 5.00 mmHg RVSP: 33.58 mmHg FINDINGS -------- Sinus rhythm. This was a technically good study. The left ventricular size is normal. Left ventricular wall thickness is normal. Overall left vent ricular systolic function is low-normal with, an EF between 50 - 55 %. The right ventricle is normal in size. The left atrium is moderately dilated. LA is moderately dilated 34-39 ml/m2 The aortic valve is trileaflet, and appears structurally normal. No aortic stenosis or regurgitation. Mild mitral annular calcification present. [id number] mitral regurgitation is present. Mild tricuspid regurgitation present. Right ventricular systolic pressure is normal at < 35 mmHg. There is no evidence of pulmonary hypertension. There is no pulmonic regurgitation present. The aortic root size is normal. There is no pericardial effusion. CONCLUSIONS -------- 1. Sinus rhythm. 2. This was a technically good study. 3. The left ventricular size is normal. 4. Left ventricular wall thickness is normal. 5. Overall left ventricular systolic function is low-normal with, an EF between 50 - 55 %. 6. The right ventricle is normal in size. 7. The left atrium is moderately dilated. 8. LA is moderately dilated 34-39 ml/m2 9. The aortic valve is trileaflet, and appears structurally normal. No aortic stenosis or regurgitati on. 10. Mild mitral annular calcification present. 11. [id number]-pvtpbzpb mitral regurgitation is present. 12. Mild tricuspid regurgitation present. 13. Right ventricular systolic pressure is normal at < 35 mmHg. 14. There is no evidence of pulmonary hypertension. 15. There is no pulmonic regurgitation present. 16. The aortic root size is normal. 17. There is no pericardial effusion. ENGINEERING AND OPERATIONS DIRECTOR: Marielena Prescott RDCS
== END | disposition home or self-care (01) ==
LOC: RADECHMAIN 08:33
PROVIDERS: ATTEND Internal Medicine Hematology & Oncology
DX: Z01.818 Encounter for other preprocedural examination (principal); C50.211 Malignant neoplasm of upper-inner quadrant of right female breast; I08.1 Rheumatic disorders of both mitral and tricuspid valves
CPT/HCPCS: 93306

== ENCOUNTER → 2019-04-19 | Outpatient (CLI) | payer BC ==
[2019-04-19 14:57] VITALS: BP 170/70; PULSE 72; RESP 18; TEMP 98.2; BMI 27.2
--- NOTE | 2019-04-19 15:25 | P.PN ---
Subjective Progress Note Date: 04/19/19 Principal diagnosis: Stage 1A right breast cancer [id number]+HER2+G1 Stage 1a Lacy is a 54 year old [place] female diagnosed with a right breast cancer Stage 1A in October 2018. She than had a lumpectomy and had chemotherapy which has recently stopped but she continues herceptin 1/month. She is receiving radiation which she started yesterday for 4 weeks. She is feeling well with occasional nausea. She lost her hair. She has no complaints related to her breast. She had a right bresat ultrasound on 02-14-19. This was benign BIRAD 2. Objective - Vital Signs Vital signs: Vital Signs Temp 98.2 F 04/19/19 14:54 Pulse 72 04/19/19 14:54 Resp 18 04/19/19 14:54 BP 170/70 04/19/19 14:54 Pulse Ox 100 04/19/19 14:54 Intake & Output 04/18/19 04/19/19 04/19/19 18:59 06:59 18:59 Weight 67.585 kg - Exam BMI 27.3 - Constitutional General appearance: Present: average body habitus - EENT Eyes: Present: EOMI ENT: Present: hearing grossly normal - Neck Neck: Present: normal ROM - Respiratory Respiratory: bilateral: CTA - Cardiovascular Rhythm: regular Heart sounds: normal: S1, S2 - Gastrointestinal General gastrointestinal: Present: soft - Integumentary Integumentary: Present: normal turgor - Musculoskeletal Musculoskeletal: Present: gait normal - Psychiatric Psychiatric: Present: A&O x's 3, appropriate affect, intact judgment & insight - Additional findings Additional findings: breast exam: Bra 36C Ptosis right ptosis 0 left ptosis grade1/2 Right breast: Well-healed scars from prior lumpectomy and one from a prior breast biopsy, fibrocystic changes, no dominant masses or nodules of concern on multi position with exam Right axilla: No adenopathy of concern Left breast: Multi-positional exam no dominant masses or nodules of concern Left axilla: No adenopathy of concern Assessment and Plan Assessment: Impression: 1. stage 1A right breast cancer no evidence of recurrence 2. receiving radiation therapy 3. finished first portion of chemotherapy, receiving herceptin 4. nausea with herceptin 5. ultrasound of the right breast BIRAD 2 Plan: 1. follow up in 4 months 2. continue radiation therapy 3. continue herceptin 4. ultrasound and mammogram of both breast in 6 months CC: Dr. Arnold appointment about 25 minutes
== END | disposition home or self-care (01) ==
LOC: WWCWWP 14:43
PROVIDERS: ATTEND Surgery
DX: Z53.9 Procedure and treatment not carried out, unspecified reason (principal)

== ENCOUNTER → 2019-05-10 | Outpatient (CLI) | payer BC ==
--- NOTE | 2019-05-11 08:35 | ECHOF ---
Referral Reason:C50.211, Z01.818 MEASUREMENTS -------- HEIGHT: 157.5 cm WEIGHT: 66.2 kg BP: RVIDd: 2.5 cm (< 3.3) IVSd: 1.1 cm (0.6 - 1.1) LVIDd: 4.2 cm (3.9 - 5.3) LVPWd: 1.2 cm (0.6 - 1.1) IVSs: 1.6 cm LVIDs: 2.2 cm LVPWs: 1.7 cm LAESV Index (A-L): 24.63 ml/m Ao Diam: 2.5 cm (2.0 - 3.7) AV Cusp: 1.8 cm (1.5 - 2.6) LA Diam: 2.6 cm (2.7 - 3.8) MV EXCURSION: 14.642 mm (> 18.000) MV EF SLOPE: 88 mm/s (70 - 150) EPSS: 0.7 cm MV E Ronny: 1.06 m/s MV DecT: 210 ms MV A Ronny: 0.78 m/s MV E/A Ratio: 1.36 RAP: 5.00 mmHg RVSP: 20.72 mmHg TAPSE: 19.20 mm FINDINGS -------- Sinus rhythm. This was a technically good study. The left ventricular size is normal. There is borderline concentric left ventricular hypertrophy. Overall left ventricular systolic function is normal with, an EF between 55 - 60 %. The diastolic filling pattern is normal for the age of the patient 14.40. The right ventricle is normal in size. The right ventricular systolic function is normal. The left atrial size is normal. Normal LA size by volume 22+/-6 ml/m2. The right atrial size is normal. Interatrial and interventricular septum intact. The aortic valve is trileaflet and appears structurally normal. The mitral valve is normal. The mitral valve leaflets are mildly thickened. Moderate mitral regur gitation is present. The tricuspid valve appears structurally normal. Mild tricuspid regurgitation present. Right vent ricular systolic pressure is normal at < 35 mmHg. There is no pulmonic regurgitation present. The aortic root size is normal. Normal inferior vena cava with normal inspiratory collapse consistent with estimated right atrial pre ssure of 5 mmHg. There is no pericardial effusion. CONCLUSIONS -------- 1. Sinus rhythm. 2. This was a technically good study. 3. The left ventricular size is normal. 4. There is borderline concentric left ventricular hypertrophy. 5. Overall left ventricular systolic function is normal with, an EF between 55 - 60 %. 6. The diastolic filling pattern is normal for the age of the patient 14.40 7. The right ventricle is normal in size. 8. The right ventricular systolic function is normal. 9. The left atrial size is normal. 10. Normal LA size by volume 22+/-6 ml/m2. 11. The right atrial size is normal. 12. Interatrial and interventricular septum intact. 13. The aortic valve is trileaflet and appears structurally normal. 14. The mitral valve is normal. 15. The mitral valve leaflets are mildly thickened. 16. Moderate mitral regurgitation is present. 17. The tricuspid valve appears structurally normal. 18. Mild tricuspid regurgitation present. 19. Right ventricular systolic pressure is normal at < 35 mmHg. 20. There is no pulmonic regurgitation present. 21. The aortic root size is normal. 22. Normal inferior vena cava with normal inspiratory collapse consistent with estimated right atrial pressure of 5 mmHg. 23. There is no pericardial effusion. ACCOUNTS COLLECTOR: Kelin Franco [facility]
--- NOTE | 2019-05-11 09:59 | BD ---
EXAMINATION TYPE: Axial Bone Density DATE OF EXAM: 05/10/2019 COMPARISON: NONE CLINICAL HISTORY: 54 YR OLD FEMALE.....ICD-10 CODE: N95.1 POST MENOPAUSAL , C50.211, Z79.890 Height: 60 Weight: 146 FRAX RISK QUESTIONS: Secondary Osteoporosis: YES 3. Menopause before 45: YES AT 40 YRS OLD RISK FACTORS HISTORY OF: Active: YES Postmenopausal woman: YES AT AGE HYST AT AGE 40 Hyperparathyroidism: NO Adrenal Insufficiency: NO MEDICATIONS: Additional Medications: BP MEDS, HX OF CHEMO AND RADIATION, LETROZOLE, REFLUX MED, CALCIUM AND VIT D, NSAIDS Additional History: RT BREAST CA WITH LUMPECTOMY, RADIATION AND CHEMO, HYPERTENSION, REFLUX, OSTEOART HRITIS EXAM MEASUREMENTS: Bone mineral densitometry was performed using the [employer] System. Bone mineral density as measured about the Lumbar spine is: ----- L1-L4(G/cm2): 1.099 T Score Values are as follows: ----- L1: -1.2 ----- L2: -0.5 ----- L3: -0.5 ----- L4: -0.7 ----- L1-L4: -0.7 Bone mineral density FIRST DEXA SCAN......BASELINE STUDY Bone mineral density about the R hip (g/cm2): 1.001 Bone mineral density about the L hip (g/cm2): 0.971 T Score values are as follows: -----R Neck: -0.2 -----L Neck: -0.2 -----R Total: -0.1 -----L Total: -0.3 Bone mineral density FIRST DEXA SCAN.....BASELINE STUDY FRAX%s: THERE IS A 3.0% CHANCE FOR A MAJOR OSTEOPOROTIC FX AND A 0.1% FOR HIP.....PROBABILITY FOR F X IN 10 YRS TIME IMPRESSION: Normal (Values between +1 and -1 indicate normal bone mass). Values approach osteoporosis of the lumb ar spine. Consider repeating this study in 5 years or sooner if there is some new clinical indication . NOTE: T-SCORE=SD OF THE YOUNG ADULT MEAN.
== END | disposition home or self-care (01) ==
LOC: RADBDWWP 15:14
PROVIDERS: ATTEND Internal Medicine Hematology & Oncology
DX: Z01.818 Encounter for other preprocedural examination (principal); I08.1 Rheumatic disorders of both mitral and tricuspid valves; C50.211 Malignant neoplasm of upper-inner quadrant of right female breast; N95.1 Menopausal and female climacteric states; Z79.890 Hormone replacement therapy
CPT/HCPCS: 77080; 93306

== ENCOUNTER → 2019-08-17 | Outpatient (CLI) | payer BC ==
--- NOTE | 2019-08-17 10:32 | ECHOF ---
Referral Reason:50.211 breast ca Z01.818 pre chemo MEASUREMENTS -------- HEIGHT: 152.4 cm WEIGHT: 65.8 kg BP: RVIDd: 2.9 cm (< 3.3) IVSd: 1.0 cm (0.6 - 1.1) LVIDd: 4.6 cm (3.9 - 5.3) LVPWd: 1.0 cm (0.6 - 1.1) IVSs: 1.1 cm LVIDs: 2.9 cm LVPWs: 1.1 cm LA Diam: 4.0 cm (2.7 - 3.8) LAESV Index (A-L): 34.49 ml/m Ao Diam: 2.4 cm (2.0 - 3.7) AV Cusp: 1.9 cm (1.5 - 2.6) LA Diam: 3.8 cm (2.7 - 3.8) MV EXCURSION: 19.176 mm (> 18.000) MV EF SLOPE: 76 mm/s (70 - 150) EPSS: 0.4 cm MV E Ronny: 0.69 m/s MV DecT: 196 ms MV A Ronny: 0.64 m/s MV E/A Ratio: 1.08 RAP: 5.00 mmHg RVSP: 34.14 mmHg FINDINGS -------- Sinus rhythm. This was a technically good study. LV size, wall thickness and systolic function are normal, with an EF greater than 55%. The left kelly tricular size is normal. The diastolic filling pattern is normal for the age of the patient 12.42. The right ventricle is normal in size. The left atrium is mildly dilated. LA is midly dilated 29-33ml/m2. The right atrial size is normal. The aortic valve is trileaflet, and appears structurally normal. No aortic stenosis or regurgitation. [id number] mitral regurgitation is present. Mild tricuspid regurgitation present. Right ventricular systolic pressure is normal at < 35 mmHg. There is no evidence of pulmonary hypertension. There is no pulmonic regurgitation present. The aortic root size is normal. There is no pericardial effusion. CONCLUSIONS -------- 1. Sinus rhythm. 2. This was a technically good study. 3. LV size, wall thickness and systolic function are normal, with an EF greater than 55%. 4. The left ventricular size is normal. 5. The diastolic filling pattern is normal for the age of the patient 12.42 6. The right ventricle is normal in size. 7. The left atrium is mildly dilated. 8. LA is midly dilated 29-33ml/m2. 9. The right atrial size is normal. 10. The aortic valve is trileaflet, and appears structurally normal. No aortic stenosis or regurgitat ion. 11. [id number]-[id number] mitral regurgitation is present. 12. Mild tricuspid regurgitation present. 13. Right ventricular systolic pressure is normal at < 35 mmHg. 14. There is no evidence of pulmonary hypertension. 15. There is no pulmonic regurgitation present. 16. The aortic root size is normal. 17. There is no pericardial effusion. FILM COLOR TESTER: Marielena Prescott RDCS
== END | disposition home or self-care (01) ==
LOC: RADECHMAIN 08:05
PROVIDERS: ATTEND Internal Medicine Hematology & Oncology
DX: Z01.818 Encounter for other preprocedural examination (principal); I08.1 Rheumatic disorders of both mitral and tricuspid valves; C50.211 Malignant neoplasm of upper-inner quadrant of right female breast
CPT/HCPCS: 93306

== ENCOUNTER → 2019-08-23 | Outpatient (CLI) | payer BC ==
[2019-08-23 09:53] VITALS: BP 145/81; PULSE 65; RESP 18; TEMP 98
--- NOTE | 2019-08-23 10:08 | P.PN ---
Subjective Progress Note Date: 08/23/19 Principal diagnosis: Stage IA right breast cancer T1 N0 M0 ER/CT positive/HER-2 positive/G1/stage IA Lacy is a 54-year-old [place] female diagnosed with a right breast cancer in October 2018. Routine screening mammogram was on 4118. This revealed an indeterminate good with calcifications in the right breast. Her last mammogram prior to this was 5 years previous. A core biopsy was done of which was positive for infiltrating ductal carcinoma grade 1 with a lobular growth pattern. There was a background of DCIS. Lumpectomy was performed and . Final pathology revealed a 12 mm invasive ductal carcinoma of the right breast in a background of DCIS. Margins were negative. 2 nodes were negative. She received whole breast radiation to 42.56 claudette followed by a 10 grade boost completed on [id number]. She tolerated the radiation therapy well. She is receiving Herceptin once a month. Her hair is growing back at this time. She is not having nausea at this time. She has mild tenderness in her right breast which is intermittent in nature. She is scheduled for bilateral mammogram on September 24. Surgical History: 1. lumpectomy and SNB right breast 2. tonsilectomy 3. gallbladder 4. breast biopsy open in past 5. hysterectomy/left ovaries Medical History: 1. HTN ROS: HEENT: Vision at times Lungs: Negative Heart: Hypertension GI: Negative : Hysterectomy Musculoskeletal: Low back pain Neurologic:none Allergies: sinus allergies Endocrine: Negative Hematologic: Negative Objective - Vital Signs Vital signs: Vital Signs Temp 98.0 F 08/23/19 09:50 Pulse 65 08/23/19 09:50 Resp 18 08/23/19 09:50 BP 145/81 08/23/19 09:50 Pulse Ox 100 08/23/19 09:50 Intake & Output 08/22/19 08/23/19 08/23/19 18:59 06:59 18:59 Weight 65.771 kg - Exam BMI 27.4 - Constitutional General appearance: Present: average body habitus - EENT Eyes: Present: EOMI ENT: Present: hearing grossly normal - Neck Neck: Present: normal ROM - Respiratory Respiratory: bilateral: CTA - Cardiovascular Rhythm: regular Heart sounds: normal: S1, S2 - Gastrointestinal General gastrointestinal: Present: soft - Integumentary Integumentary: Present: normal turgor - Musculoskeletal Musculoskeletal: Present: gait normal - Psychiatric Psychiatric: Present: A&O x's 3, appropriate affect, intact judgment & insight - Additional findings Additional findings: breast exam: Inspection: Well-healed scar right breast from prior surgery No nipple inversion bilateral Palpation: No supraclavicular cervical or axillary adenopathy of concern Right breast: Well-healed scar from prior surgery, postop changes, multiple positional exam, no dominant masses or nodules of concern Right axilla: No adenopathy of concern left breast: Multiple positional exam no dominant masses or nodules of concern, fibrocystic changes Left axilla: No adenopathy of concern Assessment and Plan Assessment: Impression: 1. 54-year-old Romanian female status post right breast lumpectomy and sentinel node biopsy treated with chemotherapy/Herceptin/radiation therapy/lumpectomy sentinel node biopsy 2. No evidence of recurrent disease at this time 2. Hypertension Plan: 1. Bilateral mammogram in September with physician exam at that time 2. Continue to follow with medical and radiation oncology 3. Hypertension as per primary care doctor CC: Dr. Arnold encounter 25 minutes, > 50% of time in planning and counselling
== END | disposition home or self-care (01) ==
LOC: WWCWWP 09:43
PROVIDERS: ATTEND Surgery
DX: Z53.9 Procedure and treatment not carried out, unspecified reason (principal)

== ENCOUNTER → 2019-11-27 | Outpatient (CLI) | payer BC ==
--- NOTE | 2019-11-28 13:47 | ECHOF ---
Referral Reason:C50.211 Breast Ca, [id number] pre chemo, MEASUREMENTS -------- HEIGHT: 157.5 cm WEIGHT: 65.8 kg BP: 113/65 RVIDd: 3.1 cm (< 3.3) IVSd: 0.9 cm (0.6 - 1.1) LVIDd: 4.7 cm (3.9 - 5.3) LVPWd: 0.9 cm (0.6 - 1.1) IVSs: 1.2 cm LVIDs: 3.1 cm LVPWs: 1.5 cm LA Diam: 3.3 cm (2.7 - 3.8) LAESV Index (A-L): 24.88 ml/m Ao Diam: 2.5 cm (2.0 - 3.7) AV Cusp: 1.6 cm (1.5 - 2.6) MV EXCURSION: 12.148 mm (> 18.000) MV EF SLOPE: 63 mm/s (70 - 150) EPSS: 0.9 cm MV E Ronny: 0.94 m/s MV DecT: 207 ms MV A Ronny: 0.80 m/s MV E/A Ratio: 1.17 RAP: 5.00 mmHg RVSP: 25.57 mmHg FINDINGS -------- Sinus rhythm. This was a technically good study. The left ventricular size is normal. Left ventricular wall thickness is normal. Overall left vent ricular systolic function is normal with, an EF between 55 - 60 %. The right ventricle is normal in size. Normal LA size by volume 22+/-6 ml/m2. The right atrium is normal in size. Interatrial and interventricular septum intact. The aortic valve is trileaflet and appears structurally normal. The mitral valve leaflets are mildly thickened. Afoj-uj-mxuegucx mitral regurgitation is present. Mild tricuspid regurgitation present. Right ventricular systolic pressure is normal at < 35 mmHg. Trace/mild (physiologic) pulmonic regurgitation. The aortic root size is normal. Normal inferior vena cava with normal inspiratory collapse consistent with estimated right atrial pre ssure of 5 mmHg. There is no pericardial effusion. CONCLUSIONS -------- 1. Sinus rhythm. 2. This was a technically good study. 3. The left ventricular size is normal. 4. Left ventricular wall thickness is normal. 5. Overall left ventricular systolic function is normal with, an EF between 55 - 60 %. 6. The right ventricle is normal in size. 7. Normal LA size by volume 22+/-6 ml/m2. 8. The right atrium is normal in size. 9. Interatrial and interventricular septum intact. 10. The aortic valve is trileaflet and appears structurally normal. 11. The mitral valve leaflets are mildly thickened. 12. Lpez-mt-wfwkyaun mitral regurgitation is present. 13. Mild tricuspid regurgitation present. 14. Right ventricular systolic pressure is normal at < 35 mmHg. 15. Trace/mild (physiologic) pulmonic regurgitation. 16. The aortic root size is normal. 17. Normal inferior vena cava with normal inspiratory collapse consistent with estimated right atrial pressure of 5 mmHg. 18. There is no pericardial effusion. ART PREPARATOR: Reena Powell RDCS
== END | disposition home or self-care (01) ==
LOC: RADECHMAIN 15:32
PROVIDERS: ATTEND Internal Medicine Hematology & Oncology
DX: Z01.818 Encounter for other preprocedural examination (principal); I08.8 Other rheumatic multiple valve diseases; C50.211 Malignant neoplasm of upper-inner quadrant of right female breast; Z88.0 Allergy status to penicillin; Z88.8 Allergy status to other drugs, medicaments and biological substances
CPT/HCPCS: 93306

== ENCOUNTER → 2019-11-30 | Outpatient (CLI) | payer BC ==
--- NOTE | 2019-12-03 07:42 | MM ---
Reason for exam: additional evaluation requested from prior study. Last mammogram was performed 1 year and 3 months ago. History: Patient has history of breast cancer at age 53. Malignant MG pre op needle loc RT of the right breast, November 14, 2018. Lumpectomy of the right breast, November 14, 2018. Malignant MG stereo VAD BX RT of the right breast, November 02, 2018. Cancelled Right US Aspiration of both breasts, August 13, 2005. Benign excisional biopsy of the right breast, July 27, 2002. Benign cyst aspiration of the right breast, 2002. Taking antineoplastic for 1 year beginning at age 53. Physical Findings: Nurse did not find any significant physical abnormalities on exam. MG 3D Diag Mammo W/Cad JANICE Bilateral CC and MLO view(s) were taken. Prior study comparison: September 08, 2018, right breast MG work up mamm w CAD RT. September 04, 2018, bilateral MG screening mammo w CAD. The breast tissue is heterogeneously dense. This may lower the sensitivity of mammography. Post surgical changes right upper outer quadrant. No significant new findings when compared with previous films. These results were verbally communicated with the patient and result sheet given to the patient on 11/30/19. ASSESSMENT: Benign, BI-RAD 2 RECOMMENDATION: Follow-up diagnostic mammogram of both breasts in 1 year.
== END | disposition home or self-care (01) ==
LOC: RADMAMWWP 14:41
PROVIDERS: ATTEND Radiology Radiation Oncology
DX: C50.211 Malignant neoplasm of upper-inner quadrant of right female breast (principal); Z92.21 Personal history of antineoplastic chemotherapy; Z17.0 Estrogen receptor positive status [ER+]
CPT/HCPCS: 77062; 77066

== ENCOUNTER 2020-01-07 07:43 | Day surgery (SDC) | payer BC ==
[2020-01-02 14:57] VITALS: BMI 26.5
[~2020-01-07 07:43] MED LIST changes: -ACETAMINOPHEN TAB 325 MG TAB PO ONE; +ACETAMINOPHEN TAB 500 MG TAB PO ONE; -ESMOLOL 100 MG/10 ML VIAL ONE; -HEPARIN SODIUM,PORCINE 100 UNIT/ML 5 ML VIAL IV ONE; +HEPARIN SODIUM,PORCINE 5,000 UNIT/ML 1 ML VIAL SQ ONE; -KETAMINE 10 MG/ML 20 ML VIAL ONE; -LACTATED RINGERS 1,000 ML IV ONE; -LACTATED RINGERS 1,000 ML IV SCH; -LIDOCAINE (PF) 10 MG/ML 2 ML VIAL SQ ONE; +LIDOCAINE 1% (10MG/ML) FOR IV START INTRADERMA PRN; -LIDOCAINE 1% 20 ML VIAL (10MG/ML) FOR IV START IV ONE; -LIDOCAINE 1% INJ 10MG/ML (20 ML MDV) ONE; -MIDAZOLAM 2 MG/2 ML VIAL IV PRN; -MIDAZOLAM 2 MG/2 ML VIAL ONE; -NALOXONE 0.4 MG/ML 1 ML VIAL IV PRN; -ONDANSETRON 4 MG/2 ML VIAL IVP ONE; -PROPOFOL 10 MG/ML 20 ML VIAL IV ONE; -Pre Op ABX Message 1 EACH MISC MISCELLANE ONE; -SCOPOLAMINE 1.5MG/72HR PATCH TRANSDERM ONE; -SODIUM CHLORIDE 0.9% 100 ML with ceFAZolin 2,000 MG IV ONE; -ceFAZolin IN SWFI 2 GM/20 ML SYRINGE IVP STA
--- NOTE | 2020-01-07 08:00 | P.GSHP ---
History of Present Illness H&P Date: 01/07/20 Chief Complaint: Breast cancer 54-year-old female underwent Port-A-Cath placement for chemotherapy to treat her right breast cancer. Patient has completed her therapy. Here today for Port-A-Cath removal. No ongoing issues with the port. Past Medical History Past Medical History: Cancer, Hypertension, Osteoarthritis (OA), Pneumonia Additional Past Medical History / Comment(s): right breast cancer 11/2018-last dose chemo November 2019,6 weeks radiation tx; Hx Pneumonia 2015; Ocassional blurred vision; constipation History of Any Multi-Drug Resistant Organisms: None Reported Past Surgical History: Breast Surgery, Cholecystectomy, Hysterectomy, Tonsillectomy Additional Past Surgical History / Comment(s): Benign right breast excisional biopsy 07/27/2002; benign right breast cyst aspiration 2002; Colonoscopy; RT BREAST LUMPECTOMY 11/14/2018; Past Anesthesia/Blood Transfusion Reactions: Motion Sickness, Postoperative Nausea & Vomiting (PONV) Smoking Status: Never smoker - Past Family History Father Family Medical History: Cancer Mother Family Medical History: Cancer Medications and Allergies Home Medications Medication Instructions Recorded Confirmed Type Multivitamins, Thera [Multivitamin 1 tab PO HS 09/13/18 01/02/20 History (formulary)] amLODIPine [Norvasc] 10 mg PO HS 09/13/18 01/02/20 History Cholecalciferol (Vitamin D3) 2,000 unit PO HS 10/23/18 01/02/20 History [Vitamin D3] Cranberry Fruit Extract [Cranberry] 200 mg PO HS 10/23/18 01/02/20 History Calcium Carbonate [Calcium] 600 mg PO DAILY 04/19/19 01/02/20 History Letrozole 2.5 mg PO HS 04/19/19 01/02/20 History Metoprolol Tartrate [Lopressor] 100 mg PO HS 04/19/19 01/02/20 History Biotin 5 mg PO HS 01/02/20 01/02/20 History Vitamin E 400 unit PO HS 01/02/20 01/02/20 History Allergies Allergy/AdvReac Type Severity Reaction Status Date / Time diphenhydramine Allergy Dyspnea Unverified 01/02/20 14:49 [From Benadryl] Iodinated Contrast Media Allergy Anaphylaxis Verified 01/02/20 14:49 [Iodinated Contrast- Oral and IV Dye] Penicillins Allergy Rash/Hives Verified 01/02/20 14:49 codeine AdvReac Nausea & Verified 01/02/20 14:49 Vomiting Surgical - Exam Physical exam: General: Well-developed, well-nourished HEENT: Normocephalic, sclerae nonicteric Abdomen: Nontender, nondistended Extremities: No edema Neuro: Alert and oriented Assessment and Plan (1) Breast cancer, right Narrative/Plan: Will proceed with Port-A-Cath removal at this time. Risks of bleeding, infection, scarring reviewed. She understands and wishes to proceed. Current Visit: No Status: Acute Code(s): C50.911 - MALIGNANT NEOPLASM OF UNSP SITE OF RIGHT FEMALE BREAST SNOMED Code(s): 625840283
[2020-01-07 08:22] VITALS: RESP 16; TEMP 97.2
[2020-01-07] MEDS: LACTATED RINGERS 1,000 ML IV SCH ×2 (08:22→10:56)
[2020-01-07] MEDS ORDERED: ONDANSETRON 4 MG/2 ML VIAL ONE ×2 (08:24→10:43)
[2020-01-07] MEDS ORDERED: HEPARIN SODIUM,PORCINE 5,000 UNIT/ML 1 ML VIAL ONE (08:24)
[2020-01-07] MEDS ORDERED: ACETAMINOPHEN TAB 500 MG TAB ONE (08:24)
[2020-01-07] MEDS ORDERED: SCOPOLAMINE 1.5MG/72HR PATCH TRANSDERM ONE (08:33)
[2020-01-07] MEDS: ONDANSETRON 4 MG/2 ML VIAL IVP ONE ×2 (08:33→10:45)
[2020-01-07] MEDS ORDERED: fentaNYL (PF) 50 MCG/ML 2 ML AMP ONE (09:22)
[2020-01-07] MEDS ORDERED: PROPOFOL 10 MG/ML 20 ML VIAL IV ONE (09:22)
[2020-01-07] MEDS ORDERED: MIDAZOLAM 2 MG/2 ML VIAL ONE (09:22)
[2020-01-07] MEDS ORDERED: LIDOCAINE (PF) 10 MG/ML 5ML AMP SQ ONE (09:39)
[2020-01-07] MEDS ORDERED: NALOXONE 0.4 MG/ML 1 ML VIAL IV PRN (10:12)
--- NOTE | 2020-01-07 10:13 | P.OP ---
Date of Procedure: 01/07/20 Procedure(s) Performed: PREOPERATIVE DIAGNOSIS: Breast cancer POSTOPERATIVE DIAGNOSIS: Same PROCEDURE: Port-A-Cath removal SURGEON: Oscar EBL: Minimal ANESTHESIA: Sedation COMPLICATIONS: None OPERATIVE PROCEDURE: Patient was placed in the supine position. The patient was sedated per anesthesia that time. The chest was prepped and draped in the usual sterile fashion. The skin was localized with Marcaine solution. The previous incision was re-incised using a scalpel. The port was easily excised using accommodation of blunt dissection sharp dissection and electrocautery. The subcutaneous tissues were reapproximated using 3-0 Vicryl sutures. The skin was reapproximated using 4-0 Monocryl sutures. Skin glue was then applied. DISPOSITION: Stable to recovery room
[2020-01-07 10:48] VITALS: BP 127/82; PULSE 58
== END 2020-01-07 11:38 | disposition home or self-care (01) ==
LOC: OR 07:43
PROVIDERS: ATTEND Surgery
DX: Z45.2 Encounter for adjustment and management of vascular access device (principal); Z85.3 Personal history of malignant neoplasm of breast; I10 Essential (primary) hypertension; M19.90 Unspecified osteoarthritis, unspecified site; Z87.01 Personal history of pneumonia (recurrent); Z92.21 Personal history of antineoplastic chemotherapy; Z92.3 Personal history of irradiation; Z90.710 Acquired absence of both cervix and uterus; Z90.49 Acquired absence of other specified parts of digestive tract; Z90.89 Acquired absence of other organs; Z98.890 Other specified postprocedural states; Z80.9 Family history of malignant neoplasm, unspecified; Z91.041 Radiographic dye allergy status; Z88.0 Allergy status to penicillin; Z88.5 Allergy status to narcotic agent; Z88.8 Allergy status to other drugs, medicaments and biological substances
CPT/HCPCS: 36590; J2250; J1644; J1100; J0690; J2405; J2001; J3010; J2704

== ENCOUNTER → 2020-04-18 | Outpatient (CLI) | payer BC ==
--- NOTE | 2020-04-18 09:45 | USB ---
Reason for exam: clinical finding. History: Patient has history of breast cancer at age 53. Malignant MG pre op needle loc RT of the right breast, November 14, 2018. Lumpectomy of the right breast, November 14, 2018. Malignant MG stereo VAD BX RT of the right breast, November 02, 2018. Cancelled Right US Aspiration of both breasts, August 13, 2005. Benign excisional biopsy of the right breast, July 27, 2002. Benign cyst aspiration of the right breast, 2002. Taking antineoplastic for 1 year beginning at age 53. Physical Findings: Nurse Summary: Patient complains of right breast tenderness x 1 month (nurse mj). US Breast RT Right complete breast ultrasound includes all four quadrants, the retroareolar region and axilla. Finding demonstrates a 2.4 x 1.3 x 0.8cm cystic lesion at 1 o'clock. Previous seroma seen at this location, questionably still persists. 5.2 x 2.1cm previously, decreasing in size. Some edematous breast tissue around 9 o'clock and upper outer quadrant likely posterior therapy change. No other cystic or solid lesion seen. Whole breast scanned. These results were verbally communicated with the patient and result sheet given to the patient on 04/18/20. ASSESSMENT: Probably benign, BI-RAD 3 RECOMMENDATION: Follow-up diagnostic mammogram of both breasts in 7 months. Back on schedule for November 2020.
== END | disposition home or self-care (01) ==
LOC: RADUSWWP 08:14
PROVIDERS: ATTEND Family Medicine
DX: N64.4 Mastodynia (principal)

== ENCOUNTER → 2021-03-13 | Outpatient (CLI) | payer BC ==
--- NOTE | 2021-03-17 09:02 | MM ---
Reason for exam: additional evaluation requested from prior study. Last mammogram was performed 1 year and 3 months ago. History: Patient has history of breast cancer at age 53. Family history of breast cancer in paternal cousin. Malignant MG pre op needle loc RT of the right breast, November 14, 2018. Lumpectomy of the right breast, November 14, 2018. Malignant MG stereo VAD BX RT of the right breast, November 02, 2018. Cancelled Right US Aspiration of both breasts, August 13, 2005. Benign excisional biopsy of the right breast, July 27, 2002. Benign cyst aspiration of the right breast, 2002. Taking antineoplastic for 1 year beginning at age 53. Physical Findings: Nurse did not find any significant physical abnormalities on exam. MG 3D Diag Mammo W/Cad JANICE Bilateral CC and MLO view(s) were taken. Spot compression CC, spot compression LM, and LM view(s) were taken of the left breast. Prior study comparison: April 18, 2020, right breast US breast RT. November 30, 2019, bilateral MG 3d diag mammo w/cad JANICE. February 14, 2019, right breast US breast RT. The breast tissue is heterogeneously dense. This may lower the sensitivity of mammography. The medial calcifications becomes less defined and smudgy on CC view. Unable to identify these on the lateral view. Post surgical change right breast. These results were verbally communicated with the patient and result sheet given to the patient on 03/13/21. ASSESSMENT: Probably benign, BI-RAD 3 RECOMMENDATION: Follow-up diagnostic mammogram of both breasts in 6 months.
== END | disposition home or self-care (01) ==
LOC: RADMAMWWP 14:59
PROVIDERS: ATTEND Family Medicine
DX: R92.1 Mammographic calcification found on diagnostic imaging of breast (principal); Z85.3 Personal history of malignant neoplasm of breast; Z80.3 Family history of malignant neoplasm of breast
CPT/HCPCS: 77062; 77066

== ENCOUNTER → 2021-08-13 | Outpatient (CLI) | payer BC ==
--- NOTE | 2021-08-13 12:26 | MM ---
Reason for exam: follow-up at short interval from prior study. Last mammogram was performed 5 months ago. History: Patient is postmenopausal and has history of breast cancer at age 53. Family history of breast cancer in paternal cousin. Malignant MG pre op needle loc RT of the right breast, November 14, 2018. Lumpectomy of the right breast, November 14, 2018. Malignant MG stereo VAD BX RT of the right breast, November 02, 2018. Cancelled Right US Aspiration of both breasts, August 13, 2005. Benign excisional biopsy of the right breast, July 27, 2002. Benign cyst aspiration of the right breast, 2002. Taking antineoplastic for 1 year beginning at age 53. Physical Findings: A clinical breast exam by your physician is recommended on an annual basis and results should be correlated with mammographic findings. MG 3D Diag Mammo W/Cad JANICE Bilateral CC and MLO view(s) were taken. LM, CC with magnification, and LM with magnification view(s) were taken of the left breast. Prior study comparison: March 13, 2021, bilateral MG 3d diag mammo w/cad JANICE. November 30, 2019, bilateral MG 3d diag mammo w/cad JANICE. Finding #1: Irregular architectural distortion in the right breast consistent with previous surgery. Finding #2: There are indeterminate grouped/clustered calcifications in the lower inner quadrant of the left breast. These results were verbally communicated with the patient and result sheet given to the patient on 08/13/21. ASSESSMENT: Suspicious, BI-RAD 4 RECOMMENDATION: Stereotactic core biopsy of the left breast. Called Dr. Olmedo's office with mammographic findings and has scheduled an appointment for the patient for 08/28/21 at 8:[address] Moscoso. Biopsy scheduled for 09/04/21 at 8:00. PRELIMINARY REPORT CALLED AND FAXED TO DR. MOSCOSO ON 08/13/21.
== END | disposition home or self-care (01) ==
LOC: RADMAMWWP 10:25
PROVIDERS: ATTEND Internal Medicine Hematology & Oncology
DX: R92.8 Other abnormal and inconclusive findings on diagnostic imaging of breast (principal); Z78.0 Asymptomatic menopausal state; Z85.3 Personal history of malignant neoplasm of breast; Z80.3 Family history of malignant neoplasm of breast
CPT/HCPCS: 77062; 77066

== ENCOUNTER → 2021-08-28 | Outpatient (CLI) | payer BC ==
[2021-08-28 08:19] VITALS: BP 169/92; PULSE 68; RESP 18; TEMP 98.2
--- NOTE | 2021-08-28 09:20 | P.PN ---
Subjective Progress Note Date: 08/28/21 Principal diagnosis: stage IA right breast cancer/? abnormal left mammogram T1 N0 M0 ER/VT positive/HER-2 positive/G1/stage IA Lacy is a 54-year-old [place] female diagnosed with a right breast cancer in October 2018. Routine screening mammogram was on 4118. This revealed an indeterminate calcifications in the right breast. Her last mammogram prior to this was 5 years previous. A core biopsy was done of which was positive for infiltrating ductal carcinoma grade 1 with a lobular growth pattern. There was a background of DCIS. Lumpectomy was performed and . Final pathology revealed a 12 mm invasive ductal carcinoma of the right breast in a background of DCIS. Margins were negative. 2 nodes were negative. She received whole breast radiation to 42.56 claudette followed by a 10 grade boost completed on 12110614. She tolerated the radiation therapy well. He continues to have some mild tenderness in the right breast with palpation. She does not feel any new lumps masses or nodules of concern. She received herceptin and taxol. She completed 12 weeks of taxol on 03-08-2019 She completed 1 year of herceptin on 11-22-2019 She started femora in March 2019 She had a bilateral mammogram on 08-13-21. Her films were reviewed with Dr. Casanova. The area of calcification in the left breast was very faint and he felt that this could be followed conservatively. Repeat radiographs in 6 months. It was felt that this area would be very hard to localize and that the level of suspicion was extremely low. Surgical History: 1. lumpectomy and SNB right breast 2. tonsilectomy 3. gallbladder 4. breast biopsy open in past 5. hysterectomy/left ovaries Medical History: 1. HTN ROS: HEENT: Vision at times Lungs: Negative Heart: Hypertension GI: Negative : Hysterectomy Musculoskeletal: Low back pain Neurologic:none Allergies: sinus allergies Endocrine: Negative Hematologic: Negative Objective - Vital Signs Vital signs: Vital Signs Temp 98.2 F 08/28/21 08:17 Pulse 68 08/28/21 08:17 Resp 18 08/28/21 08:17 BP 169/92 08/28/21 08:17 Pulse Ox 99 08/28/21 08:17 Intake & Output 08/27/21 08/28/21 08/28/21 18:59 06:59 18:59 Weight 68.946 kg - Exam BMI 28.3 - Constitutional General appearance: Present: cooperative - EENT Eyes: Present: EOMI ENT: Present: hearing grossly normal - Neck Neck: Present: normal ROM - Respiratory Respiratory: bilateral: CTA - Cardiovascular Rhythm: regular Heart sounds: normal: S1, S2 - Gastrointestinal General gastrointestinal: Present: soft - Integumentary Integumentary: Present: normal turgor - Musculoskeletal Musculoskeletal: Present: gait normal - Psychiatric Psychiatric: Present: A&O x's 3, appropriate affect, intact judgment & insight - Additional findings Additional findings: Breast Exam: BRA: 36B inspection: Well-healed scars right breast, right nipple grade 1 ptosis, left nipple grade 2 ptosis Palpation: Right breast: Multi-positional exam postop changes and no dominant masses or nodules of concern Right axilla: No adenopathy of concern Left breast: Multiple positional exam fibrocystic changes no dominant masses or nodules of concern Left axilla: No adenopathy of concern Assessment and Plan Assessment: Impression: Hypertension Stage IA right breast cancer status post Taxol/Herceptin status post radiation therapy patient presently on Femara Recent bilateral mammogram calcifications of question in the left breast, films personally reviewed with Dr. Casanova from radiology the patient is going to have repeat left breast mammogram in 6 months Plan: Repeat left breast mammogram in 6 months Follow up here in 6 months after mammogram Continue Femara Continue follow-up with medical and radiation oncology CC: Dr. Arnold
== END ==
LOC: WWCWWP 07:43
PROVIDERS: ATTEND Surgery
DX: C50.911 Malignant neoplasm of unspecified site of right female breast (principal); R92.8 Other abnormal and inconclusive findings on diagnostic imaging of breast; I10 Essential (primary) hypertension; Z17.0 Estrogen receptor positive status [ER+]; Z98.890 Other specified postprocedural states; Z88.5 Allergy status to narcotic agent; Z88.0 Allergy status to penicillin; Z91.041 Radiographic dye allergy status; Z88.8 Allergy status to other drugs, medicaments and biological substances

== ENCOUNTER → 2021-09-17 | Outpatient (CLI) | payer BC ==
--- NOTE | 2021-09-18 06:08 | BD ---
EXAMINATION TYPE: Axial Bone Density DATE OF EXAM: 09/17/2021 COMPARISON: 2019 CLINICAL HISTORY: 56 years year old Female. ICD-10 CODE: C50.211 MALIG NEOPLASM UPPER INNER QUAD RT BREAST Height: 5 FT 1 IN Weight: 149 FRAX RISK QUESTIONS: Alcohol (3 or more units per day): NO Family History (Parent hip fracture): NO Glucocorticoids (More than 3mos): NO (Ex: prednisone, prednisolone, methylprednisolone, dexamethasone, and hydrocortisone). History of Fracture in Adulthood: NO Secondary Osteoporosis: 1. Type 1 Diabetes: NO 2. Hyperthyroidism: NO 3. Menopause before 45: YES 4. Malnutrition: NO 5. Chronic liver disease: NO Rheumatoid Arthritis: NO Current Tobacco Use: NO RISK FACTORS HISTORY OF: Surgery to Spine/Hip(right/left)/Wrist (right/left): NO Family History of Osteoporosis: NO Active: YES Diet low in dairy products/other sources of calcium: NO Postmenopausal woman: YES Take estrogen and/or progesterone medications: NO Lost more than 2 inches in height since high school: NO Frequent falls: NO Poor Health: GOOD Hyperparathyroidism: NO Adrenal Insufficiency: NO MEDICATIONS: Additional Medications: AMLODIPINE, METOPROLOL, LETROZOLE, Additional History: BREAST CANCER 2019 CHEMO AND RADIATION EXAM MEASUREMENTS: Bone mineral densitometry was performed using the [employer]. Bone mineral density as measured about the Lumbar spine is: ----- L1-L4(G/cm2): 0.997 T Score Values are as follows: ----- L1: -1.8 ----- L2: -1.5 ----- L3: -1.1 ----- L4: -1.8 ----- L1-L4: -1.5 Bone mineral density has: DECREASED -9.8 % SINCE STUDY OF 2018 Bone mineral density about the R hip (g/cm2): 0.937 Bone mineral density about the L hip (g/cm2): 0.879 T Score values are as follows: -----R Neck: -0.7 -----L Neck: -1.1 -----R Total: -0.6 -----L Total: -0.9 Bone mineral density has: DECREASED -7.4 % SINCE STUDY OF 2018 FRAX%s: The graph provided illustrates a 3.7 % for a major osteoporotic fx and a 0.2 % for the hips p robability for fx in 10 years time. IMPRESSION: Osteopenia (T Score between -2.5 and -1). There is slightly increased risk of fracture and the patient may be considered for treatment. Re-Screen 2-5 years. NOTE: T-SCORE=SD OF THE YOUNG ADULT MEAN.
== END | disposition home or self-care (01) ==
LOC: RADBDWWP 12:36
PROVIDERS: ATTEND Internal Medicine Hematology & Oncology
DX: M85.89 Other specified disorders of bone density and structure, multiple sites (principal); C50.211 Malignant neoplasm of upper-inner quadrant of right female breast
CPT/HCPCS: 77080

== ENCOUNTER 2022-02-27 21:53 | Emergency (ER) | payer BC ==
[2022-02-28] MEDS ORDERED: ONDANSETRON ODT 4 MG TAB PO STA (00:08)
[2022-02-28] MEDS ORDERED: traMADol 50 MG TAB PO STA (00:09)
--- NOTE | 2022-02-28 00:20 | ED ---
Nausea/Vomiting/Diarrhea HPI - General Chief complaint: Nausea/Vomiting/Diarrhea Stated complaint: Abd pain,vomiting Time Seen by Provider: 02/27/22 23:57 Source: patient Mode of arrival: ambulatory Limitations: no limitations - History of Present Illness Initial comments: This patient is a 57-year-old woman who presents to have evaluation for constellation of symptoms that include fever or chills, bodyaches, nausea and vomiting. MD complaint: nausea, vomiting Onset/Timin -: days(s) Description of Vomiting: food contents Location: diffuse Severity: moderate Quality: cramping Consistency: intermittent Improves with: none Worsens with: none Associated Symptoms: myalgias, fever/chills, headaches, nausea/vomiting - Related Data Home Medications Medication Instructions Recorded Confirmed Multivitamins, Thera [Multivitamin 1 tab PO HS 09/13/18 08/28/21 (formulary)] amLODIPine [Norvasc] 10 mg PO HS 09/13/18 08/28/21 Cholecalciferol (Vitamin D3) 2,000 unit PO HS 10/23/18 08/28/21 [Vitamin D3] Cranberry Fruit Extract [Cranberry] 200 mg PO HS 10/23/18 08/28/21 Calcium Carbonate [Calcium] 600 mg PO DAILY 04/19/19 08/28/21 Letrozole 2.5 mg PO HS 04/19/19 08/28/21 Metoprolol Tartrate [Lopressor] 100 mg PO HS 04/19/19 08/28/21 Biotin 5 mg PO HS 01/02/20 08/28/21 Vitamin E 400 unit PO HS 01/02/20 08/28/21 Allergies Allergy/AdvReac Type Severity Reaction Status Date / Time diphenhydramine Allergy Dyspnea Verified 02/27/22 22:02 [From Benadryl] Iodinated Contrast Media Allergy Anaphylaxis Verified 02/27/22 22:02 [Iodinated Contrast- Oral and IV Dye] Penicillins Allergy Rash/Hives Verified 02/27/22 22:02 codeine AdvReac Nausea & Verified 02/27/22 22:02 Vomiting Review of Systems ROS Statement: Those systems with pertinent positive or pertinent negative responses have been documented in the HPI. ROS Other: All systems not noted in ROS Statement are negative. Constitutional: Reports: fever, chills, weakness Respiratory: Denies: cough, dyspnea Cardiovascular: Denies: chest pain, palpitations, syncope Gastrointestinal: Reports: abdominal pain, nausea, vomiting. Denies: diarrhea, constipation Genitourinary: Denies: dysuria, frequency, hematuria Musculoskeletal: Reports: back pain, myalgia Skin: Denies: rash Neurological: Reports: headache. Denies: weakness, numbness, paresthesias Past Medical History Past Medical History: Cancer, Hypertension, Osteoarthritis (OA), Pneumonia Additional Past Medical History / Comment(s): right breast cancer 11/2018; Hx Pneumonia 2015; Ocassional blurred vision; constipation; History of Any Multi-Drug Resistant Organisms: None Reported Past Surgical History: Breast Surgery, Cholecystectomy, Hysterectomy, T onsillectomy Additional Past Surgical History / Comment(s): Benign right breast excisional biopsy 07/27/2002; benign right breast cyst aspiration 2002; Colonoscopy; RT BREAST LUMPECTOMY 11/14/2018; Past Anesthesia/Blood Transfusion Reactions: Motion Sickness, Postoperative Nausea & Vomiting (PONV) Past Psychological History: Anxiety Smoking Status: Never smoker Past Alcohol Use History: None Reported Past Drug Use History: None Reported - Past Family History Father Family Medical History: Cancer Mother Family Medical History: Cancer General Exam Limitations: no limitations General appearance: alert, in no apparent distress Head exam: Present: atraumatic, normocephalic Eye exam: Present: normal appearance. Absent: scleral icterus, conjunctival injection Neck exam: Present: normal inspection Respiratory exam: Present: normal lung sounds bilaterally. Absent: respiratory distress, wheezes, rales, rhonchi, stridor Cardiovascular Exam: Present: normal rhythm, tachycardia, normal heart sounds. Absent: systolic murmur, diastolic murmur, rubs, gallop GI/Abdominal exam: Present: soft. Absent: distended, tenderness, guarding, rebound, rigid, mass Extremities exam: Present: normal inspection, normal capillary refill. Absent: pedal edema, calf tenderness Back exam: Present: normal inspection. Absent: CVA tenderness (R), CVA tenderness (L) Neurological exam: Present: alert Skin exam: Present: warm, dry, intact, normal color. Absent: rash Course Vital Signs 02/27/22 02/28/22 02/28/22 21:59 01:16 03:13 Temperature 101.9 F H 101.0 F H 98.2 F Pulse Rate 112 H 75 84 Respiratory 20 20 18 Rate Blood Pressure 113/64 124/80 122/68 O2 Sat by Pulse 97 97 97 Oximetry 02/28/22 05:51 Temperature 98.4 F Pulse Rate 66 Respiratory 15 Rate Blood Pressure 114/70 O2 Sat by Pulse 96 Oximetry Medical Decision Making - Lab Data Result diagrams: 02/28/22 03:13 02/28/22 03:13 Lab Results 02/27/22 02/28/22 02/28/22 Range/Units 22:41 01:18 03:13 WBC 7.9 (3.8-10.6) k/uL RBC 4.54 (3.80-5.40) m/uL Hgb 12.8 (11.4-16.0) gm/dL Hct 37.7 (34.0-46.0) % MCV 83.0 (80.0-100.0) fL MCH 28.2 (25.0-35.0) pg MCHC 34.0 (31.0-37.0) g/dL RDW 12.9 (11.5-15.5) % Plt Count 161 (150-450) k/uL MPV 8.6 Neutrophils % 86 % Lymphocytes % 5 % Monocytes % 7 % Eosinophils % 0 % Basophils % 1 % Neutrophils # 6.8 (1.3-7.7) k/uL Lymphocytes # 0.4 L (1.0-4.8) k/uL Monocytes # 0.5 (0-1.0) k/uL Eosinophils # 0.0 (0-0.7) k/uL Basophils # 0.1 (0-0.2) k/uL Sodium (137-145) mmol/L Potassium (3.5-5.1) mmol/L Chloride (98-107) mmol/L Carbon Dioxide (22-30) mmol/L Anion Gap mmol/L BUN (7-17) mg/dL Creatinine (0.52-1.04) mg/dL Est GFR (CKD-EPI)AfAm (>60 ml/min/1.73 sqM) Est GFR (CKD-EPI)NonAf (>60 ml/min/1.73 sqM) Glucose (74-99) mg/dL Calcium (8.4-10.2) mg/dL Total Bilirubin (0.2-1.3) mg/dL AST (14-36) U/L ALT (4-34) U/L Alkaline Phosphatase (38-126) U/L Total Protein (6.3-8.2) g/dL Albumin (3.5-5.0) g/dL Urine Color Yellow Urine Appearance Clear (Clear) Urine pH 7.0 (5.0-8.0) Ur Specific [place] 1.029 (1.001-1.035) Urine Protein 1+ H (Negative) Urine Glucose (UA) Negative (Negative) Urine Ketones 4+ H (Negative) Urine Blood Negative (Negative) Urine Nitrite Negative (Negative) Urine Bilirubin Negative (Negative) Urine Urobilinogen <2.0 (<2.0) mg/dL Ur Leukocyte Esterase Negative (Negative) Urine RBC 3 (0-5) /hpf Urine WBC 2 (0-5) /hpf Urine Mucus Few H (None) /hpf Coronavirus (PCR) Detected A (Not Detectd) 02/28/22 Range/Units 03:13 WBC (3.8-10.6) k/uL RBC (3.80-5.40) m/uL Hgb (11.4-16.0) gm/dL Hct (34.0-46.0) % MCV (80.0-100.0) fL MCH (25.0-35.0) pg MCHC (31.0-37.0) g/dL RDW (11.5-15.5) % Plt Count (150-450) k/uL MPV Neutrophils % % Lymphocytes % % Monocytes % % Eosinophils % % Basophils % % Neutrophils # (1.3-7.7) k/uL Lymphocytes # (1.0-4.8) k/uL Monocytes # (0-1.0) k/uL Eosinophils # (0-0.7) k/uL Basophils # (0-0.2) k/uL Sodium 133 L (137-145) mmol/L Potassium 3.7 (3.5-5.1) mmol/L Chloride 97 L (98-107) mmol/L Carbon Dioxide 24 (22-30) mmol/L Anion Gap 12 mmol/L BUN 12 (7-17) mg/dL Creatinine 0.60 (0.52-1.04) mg/dL Est GFR (CKD-EPI)AfAm >90 (>60 ml/min/1.73 sqM) Est GFR (CKD-EPI)NonAf >90 (>60 ml/min/1.73 sqM) Glucose 118 H (74-99) mg/dL Calcium 8.9 (8.4-10.2) mg/dL Total Bilirubin 0.5 (0.2-1.3) mg/dL AST 50 H (14-36) U/L ALT 28 (4-34) U/L Alkaline Phosphatase 95 (38-126) U/L Total Protein 7.3 (6.3-8.2) g/dL Albumin 4.4 (3.5-5.0) g/dL Urine Color Urine Appearance (Clear) Urine pH (5.0-8.0) Ur Specific [place] (1.001-1.035) Urine Protein (Negative) Urine Glucose (UA) (Negative) Urine Ketones (Negative) Urine Blood (Negative) Urine Nitrite (Negative) Urine Bilirubin (Negative) Urine Urobilinogen (<2.0) mg/dL Ur Leukocyte Esterase (Negative) Urine RBC (0-5) /hpf Urine WBC (0-5) /hpf Urine Mucus (None) /hpf Coronavirus (PCR) (Not Detectd) Disposition Clinical Impression: COVID-19 Disposition: HOME SELF-CARE Instructions (If sedation given, give patient instructions): Acute Nausea and Vomiting (ED), COVID-19 (Coronavirus Disease 2019) (ED) Is patient prescribed a controlled substance at d/c from ED?: No Referrals: Alfred Arnold MD [Primary Care Provider] - 1-2 days
--- NOTE | 2022-02-28 00:37 | XR ---
EXAMINATION TYPE: XR chest 2V DATE OF EXAM: 02/28/2022 COMPARISON: 12/15/2018 HISTORY: Cough and fever TECHNIQUE: FINDINGS: Heart and mediastinum are normal. Lungs are clear. Diaphragm is normal. Bony thorax is inta ct. No pleural effusion. IMPRESSION: No active cardiopulmonary disease. There is clearing of the atelectasis left upper lobe c ompared to old exam.
--- NOTE | 2022-02-28 00:40 | XR ---
EXAMINATION TYPE: XR KUB DATE OF EXAM: 02/28/2022 COMPARISON: NONE HISTORY: Pain TECHNIQUE: Single view FINDINGS: There is no sign of intestinal obstruction or pneumoperitoneum. Fecal pattern is normal. Th ere are clips from cholecystectomy. No sign of a mass. No calcification seen over the kidneys. IMPRESSION: Nonacute abdomen.
[2022-02-28] MEDS ORDERED: IBUPROFEN 600 MG TAB PO STA (00:49)
[2022-02-28 02:17] LABS: Appearance,Urine Clear (Clear); Bilirubin,Urine Negative (Negative); Blood,Urine Negative (Negative); Color,Urine Yellow; Glucose,Urine (UA) Negative (Negative); Ketones,Urine 4+ (Negative); Leukocyte Esterase,Urine Negative (Negative); Mucus,Urine Few /hpf; Nitrite,Urine Negative (Negative); Protein,Urine 1+ (Negative); RBC,Urine 3 /hpf (0-5); Specific Gravity,Urine 1.029 (1.001-1.035); Urobilinogen,Urine <2.0 mg/dL (<2.0); WBC,Urine 2 /hpf (0-5)
[2022-02-28] MEDS ORDERED: SODIUM CHLORIDE 0.9% 1,000 ML IV ONE (02:58)
[2022-02-28 03:35] LABS: ALT 28 U/L (4-34); AST 50 U/L (14-36); African American GFR (CKD) >90 (>60 ml/min/1.73 sqM); Albumin 4.4 g/dL (3.5-5.0); Alkaline Phosphatase 95 U/L (38-126); Anion Gap 12 mmol/L; Blood Urea Nitrogen 12 mg/dL (7-17); Calcium 8.9 mg/dL (8.4-10.2); Carbon Dioxide 24 mmol/L (22-30); Chloride 97 mmol/L (98-107); Glucose 118 mg/dL (74-99); Non-African American GFR(CKD) >90 (>60 ml/min/1.73 sqM); Potassium 3.7 mmol/L (3.5-5.1); Sodium 133 mmol/L (137-145); Total Bilirubin 0.5 mg/dL (0.2-1.3); Total Protein 7.3 g/dL (6.3-8.2)
[2022-02-28 03:57] LABS: Basophils # (A) 0.1 k/uL (0-0.2); Basophils % (A) 1 %; Eosinophils % (A) 0 %; HCT 37.7 % (34.0-46.0); HGB 12.8 gm/dL (11.4-16.0); Lymphocytes # (A) 0.4 k/uL (1.0-4.8); Lymphocytes % (A) 5 %; MCH 28.2 pg (25.0-35.0); Mean Platelet Volume 8.6; Monocytes # (A) 0.5 k/uL (0-1.0); Monocytes % (A) 7 %; Neutrophils # (A) 6.8 k/uL (1.3-7.7); Neutrophils % (A) 86 %; Platelet Count 161 k/uL (150-450); RBC 4.54 m/uL (3.80-5.40); RDW 12.9 % (11.5-15.5); WBC 7.9 k/uL (3.8-10.6)
[2022-02-28 05:52] VITALS: BP 114/70; PULSE 66; RESP 15; TEMP 98.4
== END 2022-02-28 05:52 | disposition home or self-care (01) ==
LOC: EC 21:53
DX: U07.1 COVID-19 (principal); I10 Essential (primary) hypertension; M19.90 Unspecified osteoarthritis, unspecified site; Z79.899 Other long term (current) drug therapy; Z88.8 Allergy status to other drugs, medicaments and biological substances; Z91.041 Radiographic dye allergy status; Z88.0 Allergy status to penicillin; Z88.5 Allergy status to narcotic agent
CPT/HCPCS: 36415; 71046; 74018; 80053; 81001; 85025; 87635; 96360; 99284

== ENCOUNTER → 2022-04-16 | Outpatient (CLI) | payer BC | END | disposition home or self-care (01) | LOC: WWCWWP 11:03 | PROVIDERS: ATTEND Surgery | DX: Z53.9 Procedure and treatment not carried out, unspecified reason (principal) ==

== ENCOUNTER → 2022-04-23 | Outpatient (CLI) | payer BC ==
--- NOTE | 2022-04-23 15:27 | MM ---
Reason for Exam: Additional evaluation requested from prior study. Last screening mammogram was performed 8 month(s) ago. Patient History: Menarche at age 11. First Full-Term at age 22. Hysterectomy at age 43. Postmenopausal. Breast cancer, right, age 53. 2002, Benign Cyst Aspiration on the right side. 11/14/2018, Lumpectomy on the Right side. 11/14/2018, Malignant Core Biopsy on the right side. 11/02/2018, Malignant Core Biopsy on the right side. 07/27/2002, Benign Excisional Biopsy on the right side. 08/13/2005, Bilateral Cancelled Right US Aspiration. Paternal cousin had breast cancer. Tissue Density: The breast tissue is heterogeneously dense. This may lower the sensitivity of mammography. Findings: Analyzed By CAD. Redemonstration of calcifications in the left breast in the medial aspect on CC imaging. Calcifications in this area are seen dating back to 2013 however they're larger on today's exam. Postsurgical changes of the right breast are not significantly changed from prior imaging. Overall Assessment: Suspicious, BI-RAD 4 Management: Stereotactic Core Biopsy of the left breast. A clinical breast exam by your physician is recommended on an annual basis and results should be correlated with mammographic findings. This exam should not preclude additional follow-up of suspicious palpable abnormalities. Results were given to the patient verbally at the time of exam. Electronically signed and approved by: John Alberto DO
== END | disposition home or self-care (01) ==
LOC: RADMAMWWP 14:37
PROVIDERS: ATTEND Surgery
DX: Z85.3 Personal history of malignant neoplasm of breast (principal); Z78.0 Asymptomatic menopausal state; Z80.3 Family history of malignant neoplasm of breast
CPT/HCPCS: 77062; 77066

== ENCOUNTER → 2022-05-27 | Day surgery (SDC) | payer BC ==
[2022-05-27 09:43] VITALS: RESP 16
[2022-05-27 10:53] VITALS: BP 148/79; PULSE 68; TEMP 98.5
--- NOTE | 2022-06-07 12:01 | MM ---
Prior Study Comparison: 03/13/2021 Bilateral Diagnostic Mammogram, [facility]. 08/13/2021 Bilateral Diagnostic Mammogram, [facility]. 04/23/2022 Bilateral MG 3D diag mammo w/cad JANICE, [facility]. Pathology Description: Location: upper inner quadrant. Specimen Radiograph. Approach: CC FA Needle Type: Eviva Cores: 6 Skin Nicks: 1 Gauge: 9 The procedure of stereotactic guided core biopsy was explained to the patient. Benefits, alternatives, and risks were discussed. An informed consent was then obtained. Medial microcalcifications are identified and targeted on the CC from above approach. We are unable to clearly determine where these calcifications lie on the lateral view. CC from above approach was utilized. I perform the localization followed by the remainder of the procedure. A vacuum assisted biopsy gun was used to obtain multiple core samples. The patient tolerated the procedure well without any immediate complication. The patient was kept in the radiology department for short stay after the procedure and then discharged home in stable condition. Multiple targeted calcifications are identified in specimen mammogram. More numerous than initially expected. Post biopsy mammogram shows the clip at the 9:00 position which corresponds to the site of calcifications in the prebiopsy lateral view. IMPRESSION: SUCCESSFUL, UNCOMPLICATED STEREOTACTIC GUIDED CORE BIOPSY OF AREA OF CONCERN IN THE 9:00 left BREAST. Calcifications are more numerous in the specimen than anticipated. Note the patient's personal history of breast cancer on the contralateral side. Pathology Results: Result: Benign, Fibrocystic change. LEFT BREAST, STEREOTACTIC NEEDLE CORE BIOPSY: Fibrocystic changes including fibrosis and microcalcifications. Overall Assessment: Benign Management: Diagnostic Mammogram of the left breast in 6 months. Electronically signed and approved by: Mary Jane Law M.D. Radiologist
== END ==
LOC: RADMAMWWP 09:18
PROVIDERS: ATTEND Surgery
DX: N60.12 Diffuse cystic mastopathy of left breast (principal); R92.0 Mammographic microcalcification found on diagnostic imaging of breast; Z85.3 Personal history of malignant neoplasm of breast
CPT/HCPCS: 88305; 19081; A4648; J2001

== ENCOUNTER → 2022-06-10 | Outpatient (CLI) | payer BC ==
[2022-06-10 10:19] VITALS: BP 164/96; PULSE 80; RESP 17; TEMP 98.8
== END ==
LOC: WWCWWP 09:48
PROVIDERS: ATTEND Surgery
DX: R92.8 Other abnormal and inconclusive findings on diagnostic imaging of breast (principal); Z88.5 Allergy status to narcotic agent; Z88.0 Allergy status to penicillin; Z91.041 Radiographic dye allergy status; Z88.8 Allergy status to other drugs, medicaments and biological substances

== ENCOUNTER 2022-06-26 10:12 | Emergency (ER) | payer BC ==
[2022-06-26 10:26] VITALS: TEMP 98.3
[2022-06-26] MEDS ORDERED: SODIUM CHLORIDE 0.9% 1,000 ML IV STA (10:45)
[2022-06-26] MEDS ORDERED: KETOROLAC 15 MG/ML 1 ML VIAL IVP STA (10:45)
[2022-06-26 11:07] LABS: Basophils # (A) 0.1 k/uL (0-0.2); Basophils % (A) 1 %; Eosinophils # (A) 0.3 k/uL (0-0.7); Eosinophils % (A) 3 %; HCT 40.4 % (34.0-46.0); HGB 13.4 gm/dL (11.4-16.0); Lymphocytes # (A) 1.4 k/uL (1.0-4.8); Lymphocytes % (A) 17 %; MCH 28.2 pg (25.0-35.0); MCHC 33.3 g/dL (31.0-37.0); MCV 84.6 fL (80.0-100.0); Monocytes # (A) 0.7 k/uL (0-1.0); Monocytes % (A) 9 %; Neutrophils # (A) 5.4 k/uL (1.3-7.7); Neutrophils % (A) 68 %; Platelet Count 204 k/uL (150-450); RBC 4.78 m/uL (3.80-5.40); RDW 12.5 % (11.5-15.5)
[2022-06-26 11:14] LABS: Appearance,Urine Clear (Clear); Bilirubin,Urine Negative (Negative); Blood,Urine Negative (Negative); Color,Urine Light Yellow; Glucose,Urine (UA) Negative (Negative); Ketones,Urine Negative (Negative); Leukocyte Esterase,Urine Negative (Negative); Nitrite,Urine Negative (Negative); PH, Urine 6.5 (5.0-8.0); Protein,Urine Negative (Negative); Specific Gravity,Urine 1.018 (1.001-1.035); Urobilinogen,Urine <2.0 mg/dL (<2.0)
[2022-06-26 11:19] LABS: ALT 26 U/L (4-34); AST 35 U/L (14-36); African American GFR (CKD) >90 (>60 ml/min/1.73 sqM); Albumin 4.5 g/dL (3.5-5.0); Alkaline Phosphatase 97 U/L (38-126); Anion Gap 6 mmol/L; Blood Urea Nitrogen 19 mg/dL (7-17); Calcium 8.9 mg/dL (8.4-10.2); Carbon Dioxide 30 mmol/L (22-30); Chloride 103 mmol/L (98-107); Glucose 92 mg/dL (74-99); Lipase 104 U/L (23-300); Non-African American GFR(CKD) >90 (>60 ml/min/1.73 sqM); Potassium 3.7 mmol/L (3.5-5.1); Sodium 139 mmol/L (137-145); Total Bilirubin 0.7 mg/dL (0.2-1.3); Total Protein 7.8 g/dL (6.3-8.2)
--- NOTE | 2022-06-26 11:22 | ED ---
Abdominal Pain HPI - General Chief Complaint: Abdominal Pain Stated Complaint: Blood Clot, Sent by PCP Time Seen by Provider: 06/26/22 10:29 Source: patient, RN notes reviewed Mode of arrival: ambulatory Limitations: no limitations - History of Present Illness Initial Comments: 57-year-old female presents emergency Department chief complaint left groin p ain. Patient states that pain is worse when she walks states that she has no discoloration no swelling to the area patient states she does have varicose veins and was seen at urgent care sent here for rule out DVT. Denies abdominal pain no change in bowel habits states that she has some urinary frequency no trauma otherwise. - Related Data Home Medications Medication Instructions Recorded Confirmed Multivitamins, Thera [Multivitamin 1 tab PO HS 09/13/18 06/10/22 (formulary)] amLODIPine [Norvasc] 10 mg PO HS 09/13/18 06/10/22 Cholecalciferol (Vitamin D3) 2,000 unit PO HS 10/23/18 06/10/22 [Vitamin D3] Cranberry Fruit Extract [Cranberry] 200 mg PO HS 10/23/18 06/10/22 Calcium Carbonate [Calcium] 600 mg PO DAILY 04/19/19 06/10/22 Letrozole 2.5 mg PO HS 04/19/19 06/10/22 Metoprolol Tartrate [Lopressor] 100 mg PO HS 04/19/19 06/10/22 Biotin 5 mg PO HS 01/02/20 06/10/22 Previous Rx's Medication Instructions Recorded Nystatin 100,000Unit/gm Cream 1 applic TOPICAL BID #30 gm 06/10/22 [Mycostatin Cream] Ketorolac [Toradol] 10 mg PO Q8HR #15 tab 06/26/22 Allergies Allergy/AdvReac Type Severity Reaction Status Date / Time diphenhydramine Allergy Dyspnea Verified 06/26/22 10:26 [From Benadryl] Iodinated Contrast Media Allergy Anaphylaxis Verified 06/26/22 10:26 [Iodinated Contrast- Oral and IV Dye] Penicillins Allergy Rash/Hives Verified 06/26/22 10:26 codeine AdvReac Nausea & Verified 06/26/22 10:26 Vomiting Review of Systems ROS Statement: Those systems with pertinent positive or pertinent negative responses have been documented in the HPI. ROS Other: All systems not noted in ROS Statement are negative. Past Medical History Past Medical History: Cancer, Hypertension, Osteoarthritis (OA), Pneumonia Additional Past Medical History / Comment(s): right breast cancer 11/2018; Hx Pneumonia 2015; Ocassional blurred vision; constipation; History of Any Multi-Drug Resistant Organisms: None Reported Past Surgical History: Breast Surgery, Cholecystectomy, Hysterectomy, Tonsillectomy Additional Past Surgical History / Comment(s): Benign right breast excisional biopsy 07/27/2002; benign right breast cyst aspiration 2002; Colonoscopy; RT BREAST LUMPECTOMY 11/14/2018; Past Anesthesia/Blood Transfusion Reactions: Motion Sickness, Postoperative Nausea & Vomiting (PONV) Past Psychological History: Anxiety Smoking Status: Never smoker Past Alcohol Use History: None Reported Past Drug Use History: None Reported - Past Family History Father Family Medical History: Cancer Mother Family Medical History: Cancer General Exam Limitations: no limitations General appearance: alert, in no apparent distress Head exam: Present: atraumatic, normocephalic, normal inspection ENT exam: Present: normal exam, mucous membranes moist Neck exam: Present: normal inspection, full ROM. Absent: tenderness, meningismus, lymphadenopathy Respiratory exam: Present: normal lung sounds bilaterally. Absent: respiratory distress, wheezes, rales, rhonchi, stridor Cardiovascular Exam: Present: regular rate, normal rhythm, normal heart sounds. Absent: systolic murmur, diastolic murmur, rubs, gallop, clicks GI/Abdominal exam: Present: soft, normal bowel sounds. Absent: distended, tenderness, guarding, rebound, rigid Extremities exam: Absent: full ROM (Range of motion left hip, multiple varicose veins of the left leg) Neurological exam: Present: alert Skin exam: Present: warm, dry, intact, normal color. Absent: rash Course Vital Signs 06/26/22 06/26/22 10:22 12:00 Temperature 98.3 F Pulse Rate 76 76 Respiratory 18 18 Rate Blood Pressure 182/108 163/84 O2 Sat by Pulse 100 97 Oximetry Medical Decision Making - Medical Decision Making Was pt. sent in by a medical professional or institution (, PA, PET CARE ASSOCIATE, urgent care, hospital, or [place] health care facility...) When possible be specific @ -No Did you speak to anyone other than the patient for history (EMS, parent, family, police, friend...)? What history was obtained from this source @ -No Did you review nursing and triage notes (agree or disagree)? Why? @ -I reviewed and agree with nursing and triage notes Were old charts reviewed (outside hosp., previous admission, EMS record, old EKG, old radiological studies, urgent care reports/EKG's, [place] health care facility records)? Report findings @ -No old charts were reviewed Differential Diagnosis (chest pain, altered mental status, abdominal pain women, abdominal pain men, vaginal bleeding, weakness, fever, dyspnea, syncope, headache, dizziness, GI bleed, back pain, seizure, CVA, palpatations, mental health)? @ -Groin strain, hip fracture, inguinal lymphadenopathy, hernia, DVT, abscess, this list is not all inclusive] EKG interpreted by me (3pts min.). @ -None X-rays interpreted by me (1pt min.). @ -None done CT interpreted by me (1pt min.). @ -CT of the pelvis shows degenerative lumbar changes no other acute process noted U/S interpreted by me (1pt. min.). @ -Ultrasound venous Doppler no evidence of DVT. What testing was considered but not performed or refused? (CT, X-rays, U/S, labs)? Why? @ -None What meds were considered but not given or refused? Why? @ -None Did you discuss the management of the patient with other professionals (professionals i.e. , PA, PET CARE ASSOCIATE, lab, RT, psych nurse, psychosocial rehabilitation counselor, raw stock drier tender, teacher, maritime officer, comp field case manager)? Give summary @ -Discussed imaging with radiology given the patient's concern of pain. Was smoking cessation discussed for >3mins.? @ -No Was critical care preformed (if so, how long)? @ -No Were there social determinants of health that impacted care today? How? (Homelessness, low income, unemployed, alcoholism, drug addiction, transportation, low edu. Level, literacy, decrease access to med. care, shelter, rehab)? @ -No Was there de-escalation of care discussed even if they declined (Discuss DNR or withdrawal of care, Hospice)? DNR status @ -No What co-morbidities impacted this encounter? (DM, HTN, Smoking, COPD, CAD, C ancer, CVA, ARF, Chemo, Hep., AIDS, mental health diagnosis, sleep apnea, morbid obesity)? @ -Varicosities Was patient admitted / discharged? Hospital course, mention meds given and route, prescriptions, significant lab abnormalities, going to OR and other perti jacqueline info. @ -Discharged patient had completely labs urinalysis CT and ultrasound there is no evidence of DVT. Patient may have groin strain. She is neurovascularly intact with equal pulses. Patient is improved after Toradol be discharged in stable condition return parameters were discussed. Undiagnosed new problem with uncertain prognosis? @ -No Drug Therapy requiring intensive monitoring for toxicity (Heparin, Nitro, Insulin, Cardizem)? @ -No Were any procedures done? @ -No Diagnosis/symptom? @ -Left groin strain] Acute, or Chronic, or Acute on Chronic? @ -acute Uncomplicated (without systemic symptoms) or Complicated (systemic symptoms)? @ -Uncomplicated Side effects of treatment? @ -No Exacerbation, Progression, or Severe Exacerbation? @ -No Poses a threat to life or bodily function? How? (Chest pain, USA, MD, pneumonia, PE, COPD, DKA, ARF, appy, cholecystitis, CVA, Diverticulitis, Homicidal, Suicidal, threat to staff... and all critical care pts) @ -No - Lab Data Result diagrams: 06/26/22 10:47 06/26/22 10:47 Lab Results 06/26/22 06/26/22 06/26/22 Range/Units 10:47 10:47 10:47 WBC 8.0 (3.8-10.6) k/uL RBC 4.78 (3.80-5.40) m/uL Hgb 13.4 (11.4-16.0) gm/dL Hct 40.4 (34.0-46.0) % MCV 84.6 (80.0-100.0) fL MCH 28.2 (25.0-35.0) pg MCHC 33.3 (31.0-37.0) g/dL RDW 12.5 (11.5-15.5) % Plt Count 204 (150-450) k/uL MPV 8.0 Neutrophils % 68 % Lymphocytes % 17 % Monocytes % 9 % Eosinophils % 3 % Basophils % 1 % Neutrophils # 5.4 (1.3-7.7) k/uL Lymphocytes # 1.4 (1.0-4.8) k/uL Monocytes # 0.7 (0-1.0) k/uL Eosinophils # 0.3 (0-0.7) k/uL Basophils # 0.1 (0-0.2) k/uL Sodium 139 (137-145) mmol/L Potassium 3.7 (3.5-5.1) mmol/L Chloride 103 (98-107) mmol/L Carbon Dioxide 30 (22-30) mmol/L Anion Gap 6 mmol/L BUN 19 H (7-17) mg/dL Creatinine 0.64 (0.52-1.04) mg/dL Est GFR (CKD-EPI)AfAm >90 (>60 ml/min/1.73 sqM) Est GFR (CKD-EPI)NonAf >90 (>60 ml/min/1.73 sqM) Glucose 92 (74-99) mg/dL Plasma Lactic Acid Phill (0.7-2.0) mmol/L Calcium 8.9 (8.4-10.2) mg/dL Total Bilirubin 0.7 (0.2-1.3) mg/dL AST 35 (14-36) U/L ALT 26 (4-34) U/L Alkaline Phosphatase 97 (38-126) U/L Total Protein 7.8 (6.3-8.2) g/dL Albumin 4.5 (3.5-5.0) g/dL Lipase 104 (23-300) U/L Urine Color Light Yellow Urine Appearance Clear (Clear) Urine pH 6.5 (5.0-8.0) Ur Specific [place] 1.018 (1.001-1.035) Urine Protein Negative (Negative) Urine Glucose (UA) Negative (Negative) Urine Ketones Negative (Negative) Urine Blood Negative (Negative) Urine Nitrite Negative (Negative) Urine Bilirubin Negative (Negative) Urine Urobilinogen <2.0 (<2.0) mg/dL Ur Leukocyte Esterase Negative (Negative) 06/26/22 Range/Units 10:47 WBC (3.8-10.6) k/uL RBC (3.80-5.40) m/uL Hgb (11.4-16.0) gm/dL Hct (34.0-46.0) % MCV (80.0-100.0) fL MCH (25.0-35.0) pg MCHC (31.0-37.0) g/dL RDW (11.5-15.5) % Plt Count (150-450) k/uL MPV Neutrophils % % Lymphocytes % % Monocytes % % Eosinophils % % Basophils % % Neutrophils # (1.3-7.7) k/uL Lymphocytes # (1.0-4.8) k/uL Monocytes # (0-1.0) k/uL Eosinophils # (0-0.7) k/uL Basophils # (0-0.2) k/uL Sodium (137-145) mmol/L Potassium (3.5-5.1) mmol/L Chloride (98-107) mmol/L Carbon Dioxide (22-30) mmol/L Anion Gap mmol/L BUN (7-17) mg/dL Creatinine (0.52-1.04) mg/dL Est GFR (CKD-EPI)AfAm (>60 ml/min/1.73 sqM) Est GFR (CKD-EPI)NonAf (>60 ml/min/1.73 sqM) Glucose (74-99) mg/dL Plasma Lactic Acid Phill 0.8 (0.7-2.0) mmol/L Calcium (8.4-10.2) mg/dL Total Bilirubin (0.2-1.3) mg/dL AST (14-36) U/L ALT (4-34) U/L Alkaline Phosphatase (38-126) U/L Total Protein (6.3-8.2) g/dL Albumin (3.5-5.0) g/dL Lipase (23-300) U/L Urine Color Urine Appearance (Clear) Urine pH (5.0-8.0) Ur Specific [place] (1.001-1.035) Urine Protein (Negative) Urine Glucose (UA) (Negative) Urine Ketones (Negative) Urine Blood (Negative) Urine Nitrite (Negative) Urine Bilirubin (Negative) Urine Urobilinogen (<2.0) mg/dL Ur Leukocyte Esterase (Negative) Disposition Clinical Impression: Strain of left groin Disposition: HOME SELF-CARE Condition: Stable Instructions (If sedation given, give patient instructions): Groin Pain (ED), Groin Strain (ED) Additional Instructions: Please return to the Emergency Department if symptoms worsen or any other concerns. Prescriptions: Ketorolac [Toradol] 10 mg PO Q8HR #15 tab Is patient prescribed a controlled substance at d/c from ED?: No Referrals: Alfred Arnold MD [Primary Care Provider] - 1-2 days Time of Disposition: 12:54
--- NOTE | 2022-06-26 11:24 | CT ---
EXAMINATION TYPE: CT pelvis wo con DATE OF EXAM: 06/26/2022 COMPARISON: None HISTORY: LT groin/hip pain. Sent by PCP possible blood clot. CT DLP: 388.8 mGycm Automated exposure control for dose reduction was used. FINDINGS: The left hip is normal without fracture or dislocation or focal intraosseous abnormality. The pelvic ring is intact without fracture or focal intraosseous abnormality. There is no pelvic mass, free fluid, abscess or adenopathy and the visualized bowel loops are normal. There is a bilateral spondylolysis of L5 resulting in a grade 2 anterolisthesis of L5 and S1 with dis tortion of the L5-S1 disc. IMPRESSION: Bilateral spondylolysis of L5 with a grade 2 anterolisthesis of L5 and S1. No other significant abnor mality seen IMPRESSION:
--- NOTE | 2022-06-26 12:04 | US ---
EXAMINATION TYPE: US venous doppler duplex LE LT DATE OF EXAM: 06/26/2022 11:51 AM COMPARISON: NONE CLINICAL HISTORY: pain. Pain in left groin. No hx of DVT. Patient does not take blood thinners. SIDE PERFORMED: Left TECHNIQUE: The lower extremity deep venous system is examined utilizing real time linear array sonog mickey with graded compression, doppler sonography and color-flow sonography. VESSELS IMAGED: Common Femoral Vein Deep Femoral Vein Greater Saphenous Vein * Femoral Vein Popliteal Vein Small Saphenous Vein * Proximal Calf Veins (* superficial vessels) Left Leg: No evidence of DVT. Duplicate distal femoral vein noted. Area of mixed echogenicity seen within the left groin: 1.5 x 0.7 x 0.5 cm. Appearance of varicosities without thrombus within the left medial knee area. The deep venous system of the left lower extremity from the common femoral vein to the proximal calf veins is patent and compressible with augmentable flow. IMPRESSION: No evidence of left lower extremity DVT.
[2022-06-26 13:04] VITALS: BP 174/88; PULSE 88; RESP 16
== END 2022-06-26 13:04 | disposition home or self-care (01) ==
LOC: EC 10:12
DX: S39.011A Strain of muscle, fascia and tendon of abdomen, initial encounter (principal); I10 Essential (primary) hypertension; M19.90 Unspecified osteoarthritis, unspecified site; F41.9 Anxiety disorder, unspecified; Z88.0 Allergy status to penicillin; Z88.8 Allergy status to other drugs, medicaments and biological substances; Z88.5 Allergy status to narcotic agent; Z79.899 Other long term (current) drug therapy
CPT/HCPCS: 36415; 80053; 83605; 83690; 85025; 81003; 93971; 72192; 99284; 96374; 96361; J1885

== ENCOUNTER → 2022-11-18 | Outpatient (CLI) | payer BC ==
--- NOTE | 2022-11-18 13:44 | MM ---
Reason for Exam: Clinical finding. Last screening mammogram was performed 7 month(s) ago. Patient History: Menarche at age 11. First Full-Term at age 22. Hysterectomy at age 43. Postmenopausal. Breast cancer, right, age 53. 05/27/2022, Benign MG stereo VAD BX LT on the left side. 2002, Benign Cyst Aspiration on the right side. 11/14/2018, Lumpectomy on the Right side. 11/14/2018, Malignant Core Biopsy on the right side. 11/02/2018, Malignant Core Biopsy on the right side. 07/27/2002, Benign Excisional Biopsy on the right side. 08/13/2005, Bilateral Cancelled Right US Aspiration. Paternal cousin had breast cancer. Prior Study Comparison: 11/30/2019 Bilateral Diagnostic Mammogram, [facility]. 03/13/2021 Bilateral Diagnostic Mammogram, [facility]. 04/23/2022 Bilateral MG 3D diag mammo w/cad JANICE, [facility]. Tissue Density: The breast tissue is heterogeneously dense. This may lower the sensitivity of mammography. Findings: Analyzed By CAD. Post biopsy changes left breast. No recurrent or residual mass. Post lumpectomy changes right breast remain stable over patient notes increased pain and tenderness and subsequently ultrasound is recommended. Benign calcifications seen bilaterally. Overall Assessment: Incomplete: need additional imaging evaluation, BI-RAD 0 Management: Diagnostic Breast Ultrasound of the right breast. . Results were given to the patient verbally at the time of exam. Patient should continue monthly self-breast exams. A clinical breast exam by your physician is recommended on an annual basis. This exam should not preclude additional follow-up of suspicious palpable abnormalities. Note on Dina scores and lifetime risk: 1. A Dina score greater than 3% is considered moderate risk. If this is the case, consider specialist referral to assess eligibility for a risk reducing agent. 2. If overall lifetime risk for the development of breast cancer is 20% or higher, the patient may qualify for future screening with alternating mammogram and breast MRI. Electronically signed and approved by: Homero Valle M.D. Radiologis
--- NOTE | 2022-11-18 15:00 | USB ---
Reason for Exam: Clinical finding. Patient History: Menarche at age 11. First Full-Term at age 22. Hysterectomy at age 43. Postmenopausal. Breast cancer, right, age 53. 05/27/2022, Benign MG stereo VAD BX LT on the left side. 2002, Benign Cyst Aspiration on the right side. 11/14/2018, Lumpectomy on the Right side. 11/14/2018, Malignant Core Biopsy on the right side. 11/02/2018, Malignant Core Biopsy on the right side. 07/27/2002, Benign Excisional Biopsy on the right side. 08/13/2005, Bilateral Cancelled Right US Aspiration. Paternal cousin had breast cancer. Technique: Method: Targeted. Prior Study Comparison: 04/18/2020 Right Diagnostic Ultrasound, [facility]. 03/13/2021 Bilateral Diagnostic Mammogram, [facility]. 08/13/2021 Bilateral Diagnostic Mammogram, [facility]. 04/23/2022 Bilateral MG 3D diag mammo w/cad JANICE, [facility]. Findings: The area of palpable concern of the right breast, the axilla of the right breast and the retroareolar of the right breast were scanned. Postoperative change right 12:00 location is redemonstrated with small residual seroma much improved from prior study. No suspicious masses within the [id number]. Overall Assessment: Benign, BI-RAD 2 Management: Diagnostic Mammogram of both breasts in 1 year. A clinical breast exam by your physician is recommended on an annual basis and results should be correlated with mammographic findings. This exam should not preclude additional follow-up of suspicious palpable abnormalities. Results were given to the patient verbally at the time of exam. Electronically signed and approved by: Homero Valle M.D. Radiologis
== END | disposition home or self-care (01) ==
LOC: RADMAMWWP 12:53
PROVIDERS: ATTEND Surgery
DX: R92.8 Other abnormal and inconclusive findings on diagnostic imaging of breast (principal); Z78.0 Asymptomatic menopausal state; Z80.3 Family history of malignant neoplasm of breast
CPT/HCPCS: 77062; 77066

== ENCOUNTER → 2022-12-02 | Outpatient (CLI) | payer BC ==
[2022-12-02 11:06] VITALS: BP 153/95; PULSE 86; RESP 17; TEMP 97.7
--- NOTE | 2022-12-02 11:43 | P.PN ---
Subjective Progress Note Date: 12/02/22 Principal diagnosis: right breast invasive ductal cancer 2018, stage IA Principal diagnosis: 06-10-22 right breast stage I invasive ductal cancer T1 N0 M0 ER/RI positive/HER-2 positive/G1/stage IA Lacy is a 54-year-old [place] female diagnosed with a right breast cancer in October 2018. Routine screening mammogram was on 4118. This revealed an indeterminate calcifications in the right breast. Her last mammogram prior to this was 5 years previous. A core biopsy was done of which was positive for infiltrating ductal carcinoma grade 1 with a lobular growth pattern. There was a background of DCIS. Lumpectomy was performed and . Final pathology revealed a 12 mm invasive ductal carcinoma of the right breast in a background of DCIS. Margins were negative. 2 nodes were negative. She received whole breast radiation to 42.56 claudette followed by a 10 grade boost completed on [id number]. She tolerated the radiation therapy well. She received herceptin and taxol. She completed 12 weeks of taxol on 03-08-2019 She completed 1 year of herceptin on 11-22-2019 She started femora in March 2019 She had a bilateral mammogram on 08-13-21. Her films were reviewed with Dr. Casanova. The area of calcification in the left breast was very faint and he felt that this could be followed conservatively. Repeat radiographs in 6 months. It was felt that this area would be very hard to localize and that the level of suspicion was extremely low. A repeat left breast mammogram was done on 04-23-22 after which a left breast stero biopsy was recommended. This was done on 05-27-[address] Law and it was benign concordant with microclacifications in the specimen. Note from Dr. Olmedo 02-23-22 reviewed. She was recommended to continue femora Patient is not complaining of any new lumps or masses or nodules of concern in either breast. 12-02-[address] Olmedo 08-25-22 reviewed continue letrazole and calcium and vitamin D bilateral mammogram on 11-18-22, and ultrasound of right breast BIRAD 2 She is not complaining of any new lumps masses or nodules in either breast. Surgical History: 1. lumpectomy and SNB right breast 2. tonsilectomy 3. gallbladder 4. breast biopsy open in past 5. hysterectomy/left ovaries Medical History: 1. HTN ROS: HEENT: Vision at times Lungs: Negative Heart: Hypertension GI: Negative : Hysterectomy Musculoskeletal: Low back pain Neurologic:none Allergies: sinus allergies Endocrine: Negative Hematologic: Negative Objective - Vital Signs Vital signs: Vital Signs Temp 97.7 F 12/02/22 11:04 Pulse 86 12/02/22 11:04 Resp 17 12/02/22 11:04 BP 153/95 12/02/22 11:04 Pulse Ox 98 12/02/22 11:04 FiO2 Intake & Output 12/01/22 12/02/22 12/02/22 18:59 06:59 18:59 Weight 68.039 kg - Constitutional General appearance: Present: cooperative - EENT Eyes: Present: EOMI ENT: Present: hearing grossly normal - Neck Neck: Present: normal ROM - Respiratory Respiratory: bilateral: CTA - Cardiovascular Rhythm: regular Heart sounds: normal: S1, S2 - Gastrointestinal General gastrointestinal: Present: soft - Integumentary Integumentary: Present: normal turgor - Musculoskeletal Musculoskeletal: Present: gait normal - Psychiatric Psychiatric: Present: A&O x's 3, appropriate affect, intact judgment & insight - Additional findings Additional findings: Breast Exam: BRA: 36B Inspection: bilateral grade 2 ptosis palpation: Breasts: right breast: Well-healed scars from prior surgery, fullness in the upper mid breast at 12:00 related to prior surgery but no dominant masses or nodules of concern Right axilla: No adenopathy of concern Left breast: Multiple positional exam fibrocystic changes no dominant masses or nodules of concern Left axilla: No adenopathy of concern; no evidence of any fungal infection which was treated in the past Assessment and Plan Assessment: Impression: Patient status post lumpectomy and SNB right breast stage I invasive ductal carcinoma no evidence of recurrence patient underwent lumpectomy/radiation therapy/Taxol/Herceptin Patient presently on letrazole and is tolerating this well Status post stereotactic core biopsy of the right breast on [id number] benign Plan: Bilateral mammogram in 12 months with a physician exam at that time follow up exam in 6 months CC: Dr. Arnold
== END ==
LOC: WWCWWP 10:48
PROVIDERS: ATTEND Surgery
DX: D05.11 Intraductal carcinoma in situ of right breast (principal); I10 Essential (primary) hypertension; Z17.0 Estrogen receptor positive status [ER+]; Z85.3 Personal history of malignant neoplasm of breast; Z51.0 Encounter for antineoplastic radiation therapy; Z90.710 Acquired absence of both cervix and uterus; Z92.3 Personal history of irradiation; Z90.11 Acquired absence of right breast and nipple; Z91.041 Radiographic dye allergy status; Z88.0 Allergy status to penicillin; Z88.5 Allergy status to narcotic agent; Z88.8 Allergy status to other drugs, medicaments and biological substances; Z79.899 Other long term (current) drug therapy

== ENCOUNTER → 2023-08-11 | Outpatient (CLI) | payer BC ==
--- NOTE | 2023-08-11 14:21 | MM ---
Reason for Exam: Follow-up at short interval from prior study. Last screening mammogram was performed 9 month(s) ago. Patient History: Menarche at age 11. First Full-Term at age 22. Hysterectomy at age 43. Postmenopausal. Breast cancer, right, age 53. Previous chest radiation therapy at age 48. Previous chemotherapy at age 48. 05/27/2022, Benign MG stereo VAD BX LT on the left side. 2002, Benign Cyst Aspiration on the right side. 11/14/2018, Lumpectomy on the Right side. 11/14/2018, Malignant Core Biopsy on the right side. 11/02/2018, Malignant Core Biopsy on the right side. 07/27/2002, Benign Excisional Biopsy on the right side. 08/13/2005, Bilateral Cancelled Right US Aspiration. Paternal cousin had breast cancer. Tissue Density: The breasts are heterogeneously dense, which may obscure small masses. Findings: Analyzed By CAD. Postlumpectomy distortion right breast. No evidence for recurrent or residual mass. No masses are seen within the left breast. Benign calcifications identified. Overall Assessment: Benign, BI-RAD 2 Management: Diagnostic Mammogram of both breasts in 1 year. . Results were given to the patient verbally at the time of exam. Patient should continue monthly self-breast exams. A clinical breast exam by your physician is recommended on an annual basis. This exam should not preclude additional follow-up of suspicious palpable abnormalities. Note on Dina scores and lifetime risk: 1. A Dina score greater than 3% is considered moderate risk. If this is the case, consider specialist referral to assess eligibility for a risk reducing agent. 2. If overall lifetime risk for the development of breast cancer is 20% or higher, the patient may qualify for future screening with alternating mammogram and breast MRI. Electronically signed and approved by: Homero Valle M.D. Radiologis
== END | disposition home or self-care (01) ==
LOC: RADMAMWWP 13:53
PROVIDERS: ATTEND Family Medicine
DX: C50.011 Malignant neoplasm of nipple and areola, right female breast (principal); Z80.3 Family history of malignant neoplasm of breast
CPT/HCPCS: 77062; 77066

== ENCOUNTER → 2023-09-19 | Outpatient (CLI) | payer BC ==
--- NOTE | 2023-09-22 07:19 | BD ---
EXAMINATION TYPE: Axial Bone Density DATE OF EXAM: 09/19/2023 CLINICAL HISTORY: 58 years old Female. ICD-10 CODE: M85.9 OSTEOPENIA Height: 59.9 Weight: 147 FRAX RISK QUESTIONS: Glucocorticoids (More than 3mos): yes, for bone pain (Ex: prednisone, prednisolone, methylprednisolone, dexamethasone, and hydrocortisone). Secondary Osteoporosis: yes 3. Menopause before 45: yes, at 41 yrs old Rheumatoid Arthritis: possibly, hands have the appearance, pt being tested RISK FACTORS HISTORY OF: hx of breast cancer, right breast, with node, 2019 MEDICATIONS: Letrozole, amlodipine, Metroprolol, hx of chemo and radiation, EXAM MEASUREMENTS: Bone mineral densitometry was performed using the [employer] System. Bone mineral density as measured about the Lumbar spine is: ----- L1-L4(G/cm2): 0.954 T Score Values are as follows: ----- L1: -1.7 ----- L2: -2.2 ----- L3: -1.7 ----- L4: -2.0 ----- L1-L4: -1.9 Z Score Values are as follows: ----- L1: -0.5 ----- L2: -1.0 ----- L3: -0.6 ----- L4: -0.9 ----- L1-L4: -0.7 Bone mineral density has: Decreased -4.3% since study of: 09.17.2021 Bone mineral density about the R hip (g/cm2): 0.929 Bone mineral density about the L hip (g/cm2): 0.989 T Score values are as follows: -----R Neck: -0.8 -----L Neck: -0.5 -----R Total: -0.6 -----L Total: -0.2 Z Score values are as follows: -----R Neck: 0.4 -----L Neck: 0.7 -----R Total: 0.3 -----L Total: 0.8 Bone mineral density has: Increased 5.0% since study of: 09.17.2021 FRAX%s: The graph provided illustrates a 6.1% chance for a major osteoporotic fx and a 0.3% chance fo r the hips probability for fx in 10 years time. IMPRESSION: Osteopenia (T Score between -2.5 and -1). There is slightly increased risk of fracture and the patient may be considered for treatment. Re-Screen 2-5 years. NOTE: T-SCORE=SD OF THE YOUNG ADULT MEAN.
== END | disposition home or self-care (01) ==
LOC: RADBDWWP 09:53
PROVIDERS: ATTEND Internal Medicine Hematology & Oncology
DX: C50.211 Malignant neoplasm of upper-inner quadrant of right female breast (principal); M85.89 Other specified disorders of bone density and structure, multiple sites; I10 Essential (primary) hypertension; Z71.3 Dietary counseling and surveillance; Z78.0 Asymptomatic menopausal state
CPT/HCPCS: 77080

== ENCOUNTER → 2023-10-15 | Outpatient (CLI) | payer BC ==
--- NOTE | 2023-10-16 12:04 | MR ---
EXAMINATION TYPE: MR lumbar spine wo/w con DATE OF EXAM: 10/15/2023 11:23 AM CLINICAL INDICATION:Female, 58 years old with history of C50.211 BREAST CANCER; [facility], Lower back pain with RLE radiculopathy x 6 mos, hx breast cancer. COMPARISON: None TECHNIQUE: Multi planar, multi sequence imaging was performed utilizing: T1-weighted, T2-weighted, a nd turbo inversion recovery imaging of the lumbar spine. IV Contrast: 7 cc Gadavist. (None if empty) FINDINGS: Alignment: The lumbar vertebral bodies have preserved heights with grade 2 anterolisthesis of L4 on L 5. Cord: The conus medullaris and the distal spinal cord appear unremarkable with regards to their signa l intensity and morphology. Bones/Discs: Mild degeneration changes throughout the spine with osteophyte formation and facet joint arthropathy. Intervertebral disc signal is maintained. There is some reactive enhancement of a pedic les of L5. Mild bony edema also in the pedicles of L5 bilaterally. T12-L1: No evidence of significant spinal canal stenosis or neural foraminal stenosis. L1-L2: No evidence of significant spinal canal stenosis or neural foraminal stenosis. L2-L3: No evidence of significant spinal canal stenosis or neural foraminal stenosis. L3-L4: No evidence of significant spinal canal stenosis or neural foraminal stenosis. L4-L5: No evidence of significant spinal canal stenosis or neural foraminal stenosis. L5-S1: Disc uncovering from grade 2 anterolisthesis and facet joint arthropathy with mild spinal kori l stenosis and mild bilateral neural foraminal stenosis. No significant spinal canal or neural foraminal stenosis in the remainder of the visualized levels. Other findings: Bilateral high T2 signal appearing renal cysts. IMPRESSION: 1. No definitive evidence of disc herniation or significant spinal canal stenosis. 2. Mild disc degeneration with associated osteoarthritic changes. 3. Grade 2 anterolisthesis of L5 on S1, no spondylolysis at this time however there is reactive lisy a and reactive 3. postcontrast enhancement of the pedicles concerning for impending pars interarticu carole fractures.
== END | disposition home or self-care (01) ==
LOC: RADMRIMAIN 10:28
PROVIDERS: ATTEND Internal Medicine Hematology & Oncology
DX: M43.17 Spondylolisthesis, lumbosacral region (principal); M51.16 Intervertebral disc disorders with radiculopathy, lumbar region; M47.26 Other spondylosis with radiculopathy, lumbar region; C50.211 Malignant neoplasm of upper-inner quadrant of right female breast
CPT/HCPCS: 72158; A9585

== ENCOUNTER → 2024-10-12 | Outpatient (CLI) | payer BC ==
--- NOTE | 2024-10-12 15:01 | CT ---
EXAMINATION TYPE: CT abdomen pelvis wo con DATE OF EXAM: 10/12/2024 2:29 PM COMPARISON: 06/26/2022 CLINICAL INDICATION: Female, 59 years old with history of R10.9 ABD PAIN, LEFT LUMBAR PAIN X 2 DAYS, NAUSEA, CONSTIPATION, PT RECEIVED A SHOT YESTERDAY FOR PAIN TECHNIQUE: Axial images were obtained from above the diaphragm to the pubic rami in the axial plane a t 5 mm thick sections. Reconstructed images are reviewed on the computer in the coronal plane. CONTRAST: mL of . Study performed without Oral Contrast DLP: 338.10 mGycm, Automated exposure control for dose reduction was used. FINDINGS: Limited CT sections are obtained the lung bases. The lung bases are clear. CT ABDOMEN: Liver: Normal Spleen: Normal Pancreas: Normal Adrenal glands: The adrenal glands are normal. Gallbladder: Surgically absent Kidneys: No masses are evident. No hydronephrosis is present. No cysts are present. No renal stone s evident. Aorta: Normal Inferior vena cava: Normal. CT PELVIS: Loops of bowel within the abdomen and pelvis are normal. Study is without oral contrast limiting bowel evaluation. Appendix: Normal as visualized. Urinary bladder: Normal. Genitourinary structures: Uterus and ovaries are not identified. Osseous structures: No suspicious lytic or sclerotic lesions. There is a grade 2 spondylolisthesis of L5 anterior on S1. There is loss of disc height at this level. Mild degenerative disc changes throug h the remaining lumbar spine. Vertebral body heights are preserved. Spondylolysis of L5 is present. F indings are similar to 2022. IMPRESSION: 1. Grade 2 spondylolisthesis of L5 anteriorly on S1. No stenosis is evident. Spondylolysis of L5 is present. 2. No acute intra-abdominal abnormality. [facility], , 10/12/2024 2:59 PM
== END | disposition home or self-care (01) ==
LOC: RADCTMAIN 14:06
PROVIDERS: ATTEND Emergency Medicine
DX: R10.9 Unspecified abdominal pain (principal); M43.17 Spondylolisthesis, lumbosacral region
CPT/HCPCS: 74176

== ENCOUNTER → 2024-12-12 | Outpatient (CLI) | payer BC ==
--- NOTE | 2024-12-12 15:17 | MM ---
Reason for Exam: Screening (asymptomatic). Last mammogram was performed 1 year(s) and 4 month(s) ago. Patient History: Menarche at age 11. First Full-Term at age 22. Hysterectomy at age 43. Postmenopausal. Breast cancer, right, age 53. Previous chest radiation therapy at age 48. Previous chemotherapy at age 48. 05/27/2022, Benign MG stereo VAD BX LT on the left side. 2002, Benign Cyst Aspiration on the right side. 11/14/2018, Lumpectomy on the Right side. 11/14/2018, Malignant Core Biopsy on the right side. 11/02/2018, Malignant Core Biopsy on the right side. 07/27/2002, Benign Excisional Biopsy on the right side. 08/13/2005, Bilateral Cancelled Right US Aspiration. Paternal cousin had breast cancer, age 40. Prior Study Comparison: 04/23/2022 Bilateral MG 3D diag mammo w/cad JANICE, [facility]. 11/18/2022 Bilateral MG 3D diag mammo w/cad JANICE, [facility]. 08/11/2023 Bilateral MG 3D diag mammo w/cad JANICE, [facility]. Tissue Density: The breasts are heterogeneously dense, which may obscure small masses. Findings: Analyzed By CAD. Surgical clips with subtle distortion in the upper aspect middle depth right breast is present. Mammotome biopsy clip left breast again seen. There is no suspicious new group of microcalcifications or new suspicious mass in either breast. Overall Assessment: Benign, BI-RAD 2 Management: Screening Mammogram of both breasts in 1 year. . Patient should continue monthly self-breast exams. A clinical breast exam by your physician is recommended on an annual basis. This exam should not preclude additional follow-up of suspicious palpable abnormalities. Note on Dina scores and lifetime risk: 1. A Dina score greater than 3% is considered moderate risk. If this is the case, consider specialist referral to assess eligibility for a risk reducing agent. 2. If overall lifetime risk for the development of breast cancer is 20% or higher, the patient may qualify for future screening with alternating mammogram and breast MRI. [facility], , 12/12/2024 3:14 PM. Electronically signed and approved by: Dewayne Casanova M.D.
== END | disposition home or self-care (01) ==
LOC: RADMAMWWP 14:25
PROVIDERS: ATTEND Internal Medicine Hematology & Oncology
DX: Z12.31 Encounter for screening mammogram for malignant neoplasm of breast (principal); R92.333 Mammographic heterogeneous density, bilateral breasts; Z80.3 Family history of malignant neoplasm of breast; Z85.3 Personal history of malignant neoplasm of breast; Z78.0 Asymptomatic menopausal state
CPT/HCPCS: 77063; 77067